=== PATIENT | male | born 1940 | race Caucasian/White ===

== ENCOUNTER 2024-05-24 13:00 | Outpatient (RCR) | payer MEDICARE, OTHER, SELFPAY ==
[2024-05-09 07:00] VITALS: BP 114/62; PULSE 68; O2SAT 98
== END 2024-05-28 14:10 | disposition home or self-care (01) ==
LOC: HO.PTWFD 13:00
PROVIDERS: PCP Internal Medicine; Visit Provider Nurse Practitioner
DX: Z98.890 Other specified postprocedural states (principal)
CPT/HCPCS: 97110; 97161

== ENCOUNTER 2024-08-05 09:24 | Outpatient (REF) | payer MEDICARE, OTHER, SELFPAY ==
--- OUTSIDE RECORDS SUMMARY | 2024-08-05 15:07 | XMS_ITS | Encounter Summary ---
Author Organization [facility] Address [address] [place] [address] Care Team Providers Care Window Maker Name Role Phone Lj Caldwell MD Primary Care Provider [phone] Reason for Visit * Reason Onset Date Comments medication 07/15/2024 Encounter Details Date Type Department Care Team (Late st Contact Info) Description 07/15/2024 Telephone [facility] [address] [place] [phone] Chriss Arrington MD [address] [place] [address] [address] [place] [address] medication Social History Tobacco Use Types Packs/Day [...] for him. Please call him back at [phone]. documented in this encounter Plan of Treatment Not on file documented as of this encounter Visit Diagnoses Not on filedocumented in this encounter Care Teams Window Maker Relationship Specialty Start Date End Date Lj Caldwell MD [address] [place] [address] [address] [place], [place] PCP - General Internal Medicine 09/19/21 documented as of this encounter
--- OUTSIDE RECORDS SUMMARY | 2024-08-05 15:07 | XMS_ITS | Clinical Summary ---
Author Organization [facility] Address [address] [place] [address] Care Team Providers Care Gleason Operator Name Role Phone Unavailable Primary Care Provider [...]
--- OUTSIDE RECORDS SUMMARY | 2024-08-05 15:07 | XMS_ITS | Clinical Summary ---
Author Organization [facility] Address [address] [place] [address] Phone Care Team Providers Care Sound Tester Name Role Phone Lj Caldwell MD Primary Care Provider [phone] Encounters Date Type Department Care Team Description 07/15/2024 Telephone [facility] Cardiology [address] [place] [phone] Chriss Arrington MD medication from Last 3 Months Surgical History Surgery Date Site/Laterality Comments OTHER SURGICAL HISTORY PROCEDURE: DC LAPS SURG [id number] RPBIC RAD W/NRV SPARING ROBOT TOTAL KNEE ARTHROPLASTY Bilateral PROCEDURE: HISTORICAL TOTAL KNEE REPLACE CHOLECYSTECTOMY PROCEDURE: HISTORICAL CHOLECYSTECTOMY TONSILLECTOMY 1944 PROCEDURE: HISTORICAL TONSILLECTOMY OTHER SURGICAL HISTORY PROCEDURE: HISTORY OTHER; COMMENT: Insertion of artifical genitourinary sphincter CATARACT EXTRACTION PROCEDURE: HISTORICAL CATARACT REMOVAL OTHER SURGICAL HISTORY PROCEDURE: DC CYSTO W/RESECJ ECTOPIC URETEROCELE UNI/BI APPENDECTOMY PROCEDURE: [...] [facility] 08/[facility] Urolithiasis DX:Urolithiasis; COMMENT: D[facility] 08/21/21 Transaminitis DX:Transaminitis ; COMMENT: D/C'd [place] [facility] 08/21/21 BPH (benign prostatic hyperplasia) DX:BPH (benign [...] age to complete this topic Care Teams Sound Tester Relationship Specialty Start Date End Date Lj Caldwell MD [address] [place] [address] [address] [place], [place] PCP - General Internal Medicine 09/19/21
[2024-08-05 15:23] LABS: MANUAL DIFF FLAG NO
[2024-08-05 15:42] LABS: Basophils Percent Auto 0.4 % (0-2); Eosinophils Absolute Auto 0.1 X10*3/uL (0.0-0.4); Eosinophils Percent Auto 1.5 % (0-4); Hematocrit 44.2 % (42.0-52.0); Imm Gran Abs Auto 0.02 X10*3/uL (0.00-0.03); Imm Gran Pct Auto 0.4 % (0.0-0.4); Lymphocytes Absolute Auto 2.1 X10*3/uL (1.2-4.9); Mean Corpuscular HGB Conc 33.9 g/dl (31.0-36.0); Mean Corpuscular Hemoglobin 33.2 pg (27.0-33.0); Mean Corpuscular Volume 97.8 fL (80.0-98.0); Mean Platelet Volume 10.8 fL (9.4-12.4); Monocytes Absolute Auto 0.7 X10*3/uL (0.1-1.2); Monocytes Percent Auto 12.9 % (2-11); Neutrophils Absolute Auto 2.4 x10*3/uL (2.0-8.3); Neutrophils Percent Auto 45.8 % (45-73); Platelet Count 169 X10*3/uL (160-400); Red Blood Count 4.52 X10*6/uL (4.60-5.80); Red Cell Distribution Width 12.3 % (11.0-16.0); White Blood Count 5.3 X10*3/uL (4.8-10.8)
[2024-08-05 16:12] LABS: Alanine Aminotransferase 26 U/L (0-40); Albumin Level 3.9 g/dL (3.5-5.0); Anion Gap 12 (12-20); Aspartate Amino Transferase 28 U/L (5-37); Bilirubin Total 0.5 mg/dL (0.0-1.0); Blood Urea Nitrogen 29 mg/dL (9-16); C Reactive Protein < 0.10 mg/dL (< or = 0.50); Calcium 9.4 mg/dL (8.4-10.2); Carbon Dioxide 25 mmol/L (22-29); Chloride 107 mmol/L (96-108); Estimated Glomerular Filt Rate > 60; Glucose Random 95 mg/dL (60-115); Potassium 4.2 mmol/L (3.3-5.1); Sodium 140 mmol/L (135-145); Total Protein 7.2 g/dL (6.5-8.0)
[2024-08-05 16:18] LABS: Alkaline Phosphatase 49 U/L (39-117)
[2024-08-05 16:29] LABS: Ferritin 83 ng/mL (20-250); TSH reflex Free T4 1.66 uIU/mL (0.32-4.0)
[2024-08-09 22:32] LABS: Transglutaminase Ab IgG <1.0 U/mL; Transglutaminase IgA <1.0 U/mL
== END 2024-08-05 09:25 | disposition home or self-care (01) ==
LOC: HO.LAB 09:24
PROVIDERS: PCP Internal Medicine; Visit Provider Internal Medicine Gastroenterology
DX: K75.81 Nonalcoholic steatohepatitis (NASH) (principal); R19.8 Other specified symptoms and signs involving the digestive system and abdomen; Z80.0 Family history of malignant neoplasm of digestive organs; R10.33 Periumbilical pain; G89.29 Other chronic pain
CPT/HCPCS: 36415; 80053; 82728; 84443; 85025; 86140; 86364; 99202

== ENCOUNTER 2024-08-05 09:24 | Outpatient (AMB) | payer MEDICARE, OTHER, SELFPAY ==
--- NOTE | 2024-08-05 09:27 | A.OFFVIS_ITS ---
Vital Signs 08/05/24 09:36 Height 5 ft 8 in Weight 151 lb BMI 23.0 BP 113/73 Blood Pressure Location Lt brachial Position Sitting Pulse 77 Intake Visit Reasons: Abnormal weight loss, Hx of Pancreaitis cancer Intake Note: Wicho presents in the office as a new patient for abnormal weight loss and hx of pancreatic cancer. CC: HE states that he is losing weight and also having very long BM he states they are 14 inches long. BM is hard and long. Allergies No Known Allergies Allergy (Verified 08/05/24 09:37) HPI HPI Abnormal weight loss, Hx of Pancreaitis cancer: Details: HPI 83 yr old m here for assessment for abn bowel habits He has noted longer stools, more volume, no blood he is going one-two times a day no diarrhea the stool is large and not easily flushed he had colonoscopy 1-2 yrs ago and had x2 polyps removed at [facility] by Johnny denies nausea or vomiting appetite is v good ROS: Constitutional : No Weight loss, No Fever, No Chills ENT/Mouth : No sore throat, No Rhinorrhea Eyes: No Swelling, No Redness Cardiovascular : No Chest Pain, No SOB, No Edema Respiratory : No Cough, No Sputum, No Wheezing Gastrointestinal : see HPI Genitourinary : NO Dysuria, No Urinary Frequency, No Hematuria, No Urgency Musculoskeletal : no joint pain, No Myalgias, No Joint Swelling Skin : No Skin Lesions, No rash Neuro : No Weakness, No Numbness, No Dizziness, No Headache Psych : No Anxiety/Panic, No Depression Heme/Lymph: No Bruising, No Lymphadenopathy Endocrine : No Polyuria, No Polydipsia All other systems reviewed and are negative. Medical History prostate cancer a-fib alzheimers HLP Surgical History prostatectomy when he was young man Family History pancreatic cancer in mother and brother daughter has celiac disease Social History no alcohol, non smoker, no drugs EXAM: GENERAL: The patient is well developed and nontoxic. VITAL SIGNS:see workflow HEENT: Nonicteric sclerae, PERRLA, EOMI. Oropharynx clear. Moist mucous membranes. Conjunctivae appear well perfused. No thyroid mass. CHEST: Chest wall is nontender. HEART: Regular rate and rhythm without murmurs. LUNGS: Clear to auscultation bilaterally. ABDOMEN: Soft, positive bowel sounds, nontender, no organomegaly.no flank tenderness SKIN: No rash, no excessive bruising, petechiae, or purpura. NEUROLOGIC: Cranial nerves II-XII intact without motor/sensory deficit. Psych: normal affect A/P: 1/ Abn bowel habits, previous hx of prostate ca, and pos FH of pancreatic ca--could be from meds also PLAN: 1/labs as below icnl TSH 2/ CT A/P wt contrast 3/ colonoscopy with suprep, hold epiquis for 2 d before [facility] Surgical History (Updated 08/05/24 @ 09:37 by SUNG Mukherjee) Hx of colonoscopy Physical Exam Vital Signs: Last Vital Signs Pulse 77 08/05/24 09:36 BP 113/73 08/05/24 09:36 BMI result Body Mass Index 23.0 Assessment & Plan Assessment & Plan (1) Abnormal bowel habits: Code(s): R19.8 - Other specified symptoms and signs involving the digestive system and abdomen Category: Medical Plan: as above (2) FH: pancreatic cancer: Code(s): Z80.0 - Family history of malignant neoplasm of digestive organs Category: Medical Plan: as above Orders: Orders Comprehensive Met. Panel Today K75.81 - Nonalcoholic steatohepatitis (BRITO), R19.8 - Other specified symptoms and signs involving the digestive system and abdomen, Z80.0 - Family history of malignant neoplasm of digestive organs Complete Blood Count Auto Diff Today R19.8 - Other specified symptoms and signs involving the digestive system and abdomen, Z80.0 - Family history of malignant neoplasm of digestive organs C Reactive Protein Today R19.8 - Other specified symptoms and signs involving the digestive system and abdomen, Z80.0 - Family history of malignant neoplasm of digestive organs Ferritin Today R19.8 - Other specified symptoms and signs involving the digest mariely system and abdomen, Z80.0 - Family history of malignant neoplasm of digestive organs TSH reflex Free T4 Today R19.8 - Other specified symptoms and signs involving the digestive system and abdomen, Z80.0 - Family history of malignant neoplasm of digestive organs Transglutaminase IgA Today R19.8 - Other specified symptoms and signs involving the digestive system and abdomen, Z80.0 - Family history of malignant neoplasm of digestive organs Transglutaminase Ab IgG Today G89.29 - Other chronic pain, R10.33 - Perium bilical pain, R19.8 - Other specified symptoms and signs involving the digestive system and abdomen, Z80.0 - Family history of malignant neoplasm of digestive organs Pancreatic Elastase-1 Today R19.8 - Other specified symptoms and signs involving the digestive system and abdomen, Z80.0 - Family history of malignant neoplasm of digestive organs CT abdomen pelvis w IV con Today R19.8 - Other specified symptoms and signs involving the digestive system and abdomen, Z80.0 - Family history of malignant neoplasm of digestive organs Medications: New barium sulfate 2%(w/v) (Readi-Cat 2) 900 mL PO ONCE 900 mL 0RF sodium,potassium,mag sulfates 17.5-3.13-1.6 gram (Suprep Bowel Prep Kit) DILUTE; drink 1/2 at 6-8 pm and half at 11 PM- 1AM 354 mL 0RF Coding Level of Care Code New Pt Level 4 (41039) Diagnoses Abnormal bowel habits R19.8 FH: pancreatic cancer Z80.0
[2024-08-05 09:36] VITALS: BP 113/73; PULSE 77; BMI 23.0
--- OUTSIDE RECORDS SUMMARY | 2024-08-05 09:48 | XMS_ITS | Data Portability ---
Author Organization [place] - [facility], Allergy Address [address] [place] [address] Care Team Providers Care Education Program Specialist Name Role Phone MACRINA MCINTYRE Primary Care Provider Assessment Encounter Date Assessment Date Assessment LastModified by Organization Details LastModified Time 07/05/2024 07/05/2024 Cerumen impaction, bilateral Resolved s/p cerumen removal. Normal otomicroscopic ear exam. PLAN: - Follow-up in 1 year - Advised to abstain from qtip use [email or web address] Not available 07/05/2024 11:34:49 Plan of Treatment Reminders Order Date Submit Date Provider Last Modified By Organization Details Last Modified Time Details Appointments None record ed. Lab None record ed. Referral None record ed. Procedures None record ed. Surgeries None record ed. Imaging None record ed. Medication Orders None record ed. Patient TargetsNo targets recorded. Patient InstructionsNo instructions recorded. Reason for Referral None Reported. Problems Name Problem SNOMED Code Status Onset Date Resolution Date Notes Provider Name and Address Organization Details Recorded Time Sensorine ural hearing loss of bilateral ears [id number] Active 2020 Sensorine ural hearing loss, bilateral ; Note: Date Diagnosed : 07/06/2020 11:18 AM (H90.3) Not Available [facility] 4 03:07:43 Impacted cerumen of bilateral ears [id number] 67644 Active 2020 Impacted cerumen, bilateral ; Note: Date Diagnosed : 07/06/2020 11:17 AM (H61.23) Not Available [facility] 4 03:07:42 Problem Notes None recorded. Procedures Surgical History Date Name Laterality Status Provider Name and Address Organization Details Recorded Time 07/05/19 25 Cerumen removal with microscope bilateral completed BRYANT MCCLAIN MD [address] [place] [address], [place], [address], [facility] - [facility] 07/05/2024 11:34:33 Tonsillectomy completed Yasmine Lebron [facility] 07/05/2024 11:15:22 Appendectomy completed Yasmine Lebron [facility] 07/05/2024 11:15:28 cholecystectomy completed Yasmine Lebron [facility] 07/05/2024 11:15:35 Cataract Surgery completed Yasmine Lebron [facility] 07/05/2024 11:16:10 Imaging Results None recorded. Procedure Notes None recorded. Medical Equipment None Reported. Allergies No known drug allergies Medications Name Sig Start Date Stop Date Status Note LastModified by Organization Details LastModified Time cyclobenz aprine 10 mg tablet TAKE 1 TABLET THREE TIMES DAILY NEEDED FOR BACK PAIN/ MUSCLE SPASM active Not Available Not Available No t Available donepezil 5 mg tablet active Not Available Not Available Not Available tizanidin e 2 mg tablet TAKE 1 TABLET BY MOUTH THREE TIMES A DAY NEEDED 07/05 completed Not Available Not Available Not Available tramadol 50 mg tablet TAKE 1 TABLET BY MOUTH TWICE A DAY active Not Available Not Available No t Available meloxicam 7.5 mg tablet 07/05 completed Medicati on ID: [id number] rand Name: meloxica m Send Method: E-Prescr ibed Sub s Allowed: subs OK Medic ationGen ericName : meloxica m Not Available Not Available Not Available hydrocort isone 2.5 % topical cream APPLY TO AFFECTED AREAS TWICE DAILY UNTIL RESOLVED . active Not Available Not Available No t Available ketoconaz ole 2 % topical cream APPLY THIN LAYER TO GROIN ONCE DAILY OR NEEDED. active Not Available Not Available No t Available rosuvasta tin 10 mg tablet TAKE 1 TABLET BY MOUTH EVERY DAY active Not Available Not Available No t Available DILT-XR 120 mg capsule, extended release TAKE 1 CAPSULE BY MOUTH DAILY FOR 180 DAYS. active Not Available Not Available No t Available Myrbetriq 50 mg tablet,ex tended release 2020 active Medicati on ID: [id number] B rand Name: Myrbetri q Send Method: E-Prescr ibed Sub s Allowed: subs OK Medic ationGen ericName : Perlabetri q Not Available Not Available Not Available Eliquis 5 mg tablet TAKE 1 TABLET BY MOUTH TWICE A DAY active Not Available Not Available No t Available Gemtesa 75 mg tablet active Not Available Not Available Not Available Vitals None Recorded Social History None recorded. Functional Status None recorded. Mental Status None recorded. Family History Nothing Reported. Medical History Condition Response Hypertension Y High Cholesterol Y Past Encounters Encounter ID Performer Location Encounter Start Date Encounter Closed Date Diagnosis/Indication Diagnosis SNOMED-CT Code Diagnosis ICD10 Code Diagnosis Note [id number] BRYANT MCCLAIN MD [facility] [address] [address] 07/05/2024 10:54:13 07/05/2024 11:30:48 Impacted cerumen of bilateral ears [id number] H61.23 Health Concerns Section Related Observation LastModified by Organization Detai ls LastModified Time None Recorded Concern Status LastModified by Organization Details LastModified Time None Recorded Advance Directives Directive None Recorded Payers Encounter Date Sequence Insurance Name Policy Number Policy Cantu Covered Member ID Cantu Member ID Guarantor Name 07/05/2024 1 [place] [employer] Wicho Vergara [id number] Wicho Vergara 07/05/2024 2 [facility] INDEMNITY PLAN - [facility] [id number] Barbara Patrice Vergara [id number] Wicho Vergara Notes Date Note Type Note Provider Name and Address Organization Details Recorded Time 07/05/2024 text/html History of cerumen impaction: yes Hearings loss: yes Qtip use: no Tinnitus: noVertigo: no Pain: no Drainage: no History of ear infections: no History of ear surgeries: no BRYANT MCCLAIN MD [address] [place] [address], [phone], [facility] - [facility] 07/05/2024 11:35:14
--- OUTSIDE RECORDS SUMMARY | 2024-08-05 09:49 | XMS_ITS | Clinical Summary ---
Author Organization [facility] Address [address] [place] [address] Phone Care Team Providers Care Nozzle Tender Name Role Phone Lj Caldwell MD Primary Care Provider [phone] Encounters Date Type Department Care Team Description 07/15/2024 Telephone [facility] Cardiology [address] [place] [phone] Chriss Arrington MD medication from Last 3 Months Surgical History Surgery Date Site/Laterality Comments OTHER SURGICAL HISTORY PROCEDURE: HI LAPS SURG [id number] RPBIC RAD W/NRV SPARING ROBOT TOTAL KNEE ARTHROPLASTY Bilateral PROCEDURE: HISTORICAL TOTAL KNEE REPLACE CHOLECYSTECTOMY PROCEDURE: HISTORICAL CHOLECYSTECTOMY TONSILLECTOMY 1944 PROCEDURE: HISTORICAL TONSILLECTOMY OTHER SURGICAL HISTORY PROCEDURE: HISTORY OTHER; COMMENT: Insertion of artifical genitourinary sphincter CATARACT EXTRACTION PROCEDURE: HISTORICAL CATARACT REMOVAL OTHER SURGICAL HISTORY PROCEDURE: HI CYSTO W/RESECJ ECTOPIC URETEROCELE UNI/BI APPENDECTOMY PROCEDURE: HISTORICAL APPENDECTOMY Medical History Medical History Date Comments Leucopenia DX:Leucopenia Chronic low back pain DX:Chronic low back pain Prostate cancer (CMS/HCC) DX:Pro state cancer (HCC) History of kidney stones DX:Hist ory of kidney stones Hydroureteronephrosis DX:Hydrour eteronephrosis; COMMENT: D/C'd from [facility] 08/21/21 Renal colic on right side DX:John al colic on right side; COMMENT: D/C'd from [facility] 08/21/21 UTI (urinary tract infection), bacterial DX:UTI (urinary tract infection), bacterial; COMMENT: D/C'd from [facility] 08/21/21 Urolithiasis DX:Urolithiasis; COMMENT: D/C'd from [facility] 08/21/21 Transaminitis DX:Transaminitis ; COMMENT: D/C'd from [facility] 08/21/21 BPH (benign prostatic hyperplasia) DX:BPH (benign prostatic hyperplasia) GERD (gastroesophageal reflux disease) DX:GERD (gastroesophageal reflux disease) Varicose veins of both lower extremities DX: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 DX :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 (CMS/HCC) DX:Adenocarcinoma of prostate (HCC) Lumbar herniated disc DX:Lumbar herniated disc Stress incontinence DX:Stress in continence History of varicose veins DX:His tory of varicose veins Elevation of levels of liver transaminase levels DX:Elevation of levels of li chapo transaminase levels Urinary calculus DX:Urinary calc ulus Unspecified hydronephrosis DX:Un specified hydronephrosis Tinea cruris DX:Tinea cruris Idiopathic osteoarthritis DX:Idi opathic osteoarthritis Anogenital candidiasis DX:Anogen ital candidiasis Amnesia DX:Amnesia IFG (impaired fasting glucose) D X:IFG (impaired fasting glucose) Family History Medical History Relation Name Comments Heart attack Father Other cancer Mother Relation Name Status Comments Father @ 7 6y/o Mother Social History Tobacco Use Types Packs/Day Years Used Date Smoking Tobacco: Never Smokeless Tobacco: Never Alcohol Use Standard Drinks/Week Comments Not Currently 0 (1 standard drink = 0.6 oz pur e alcohol) Sex and Gender Information Value Date Recorded Sex Assigned at Not on file Legal Sex Male 2:12 AM EST Gender Identity Not on file Sexual Orientation Not on file Obstetrics History Last Filed Vital Signs Vital Sign Reading Time Taken Comments Blood Pressure 118/70 02/03/2024 9:19 AM EDT Sit ting L Arm Pulse 70 02/03/2024 9:19 AM EDT Temperature - - Respiratory Rate - - Oxygen Saturation - - Inhaled Oxygen Concentration - - Weight 69.9 kg (154 lb) 02/03/2024 9:19 AM EDT Height 175.3 cm (5' 9 ) 02/03/2024 9:19 AM EDT Body Mass Index 22.74 02/03/2024 9:19 AM EDT Plan of Treatment Health Maintenance Due Date Last Done Comments COVID-19 Vaccine (#1) 1945 DTaP,Tdap,and Td Vaccines (1 - Tdap) 10/08/1959 Pneumococcal Vaccine: 50+ Ye ars (1 of 1 - PCV) 1990 Zoster Vaccines (1 of 2) 1990 RSV Immunization Patients 60 + Years Old (1 - 1-dose 75+ series) 10/08/2015 Cholesterol Screening (Lipid Panel) 06/01/2022 Depression Screening 06/01/2022 Falls Risk Assessment 06/01/2022 Social Influencers of Health Screening 06/01/2022 Influenza Vaccine (#1) 2024 Hypertension/CHF/CAD Annual BMP Blood Test 03/31/2024 HIB Vaccines Aged Out No longer eligi ble based on patient's age to complete this topic HPV Vaccines Aged Out No longer eligi ble based on patient's age to complete this topic Hepatitis A Vaccines Aged Out No long er eligible based on patient's age to complete this topic Hepatitis B Vaccines Aged Out No long er eligible based on patient's age to complete this topic IPV Vaccines Aged Out No longer eligi ble based on patient's age to complete this topic MMR Vaccines Aged Out No longer eligi ble based on patient's age to complete this topic Meningococcal ACWY Vaccine Aged Out N o longer eligible based on patient's age to complete this topic Meningococcal B Vacine Aged Out No lo nger eligible based on patient's age to complete this topic RSV Immunization Patients Un zulema 20 months Aged Out No longer eligible b ased on patient's age to complete this topic Varicella Vaccines Aged Out No longer eligible based on patient's age to complete this topic Care Teams Nozzle Tender Relationship Specialty Start Date End Date Lj Caldwell MD [address] [place] [address] [address] [place], [place] PCP - General Internal Medicine 09/19/21
--- OUTSIDE RECORDS SUMMARY | 2024-08-05 09:49 | XMS_ITS | Clinical Summary ---
Author Organization [facility] Address [address] [place] [address] Care Team Providers Care Judicial Clerk Name Role Phone Unavailable Primary Care Provider Unavailabl e Social History Tobacco Use Types Packs/Day Years Used Date Smoking Tobacco: Never Assessed Sex and Gender Information Value Date Recorded Sex Assigned at Not on file Gender Identity Not on file Sexual Orientation Not on file Job Start Date Occupation Industry Not on file Not on file Not on file Plan of Treatment Not on file
--- OUTSIDE RECORDS SUMMARY | 2024-08-05 09:49 | XMS_ITS | Encounter Summary ---
Author Organization [facility] Address [address] [place] [address] Care Team Providers Care Retail Tire Sales Manager Name Role Phone Lj Caldwell MD Primary Care Provider [phone] Reason for Visit * Reason Onset Date Comments medication 07/15/2024 Encounter Details Date Type Department Care Team (Late st Contact Info) Description 07/15/2024 Telephone [facility] [address] [place] [phone] Chriss Arrington MD [address] [place] [address] [address] [place] [address] medication Social History Tobacco Use Types Packs/Day Years Used Date Smoking Tobacco: Never Smokeless Tobacco: Never Alcohol Use Standard Drinks/Week Comments Not Currently 0 (1 standard drink = 0.6 oz pur e alcohol) Sex and Gender Information Value Date Recorded Sex Assigned at Not on file Legal Sex Male 2:12 AM EST Gender Identity Not on file Sexual Orientation Not on file documented as of this encounter Progress Notes * Amy Paez MA - 07/15/2024 4:35 PM EST I called Barbara and advised as below, she is gateful * Alon Rodriguez NP - 07/15/2024 4:12 PM EST Unfortunately I do not have a good recommendation - she should call her insurance company and ask for a list * Amy Paez MA - 07/15/2024 2:51 PM EST She is asking also if you had recommendations of a neurologist * Alon Rodriguez NP - 07/15/2024 2:43 PM EST Its fine for him to take. One possible side effect is slow heart rates. If he becomes dizzy or lightheaded on it then he may have to stop it. I would say he can give it a try. * Jayne Shabazz - 07/15/2024 2:14 PM EST The patients Barbara ibarra. He was recently diagnosed with Alzheimer's and Dementia. He wasplaced on Donepezil and is asking if this is ok for him to take, They read inline that he shouldn'ttake it because of his a-fib. They would also like to know if you can recommend a neurologist for him. Please call him back at [phone]. documented in this encounter Plan of Treatment Not on file documented as of this encounter Visit Diagnoses Not on filedocumented in this encounter Care Teams Retail Tire Sales Manager Relationship Specialty Start Date End Date Lj Caldwell MD [address] [place] [address] [address] [place], [place] PCP - General Internal Medicine 09/19/21 documented as of this encounter
== END 2024-08-05 10:27 | disposition home or self-care (01) ==
PROVIDERS: PCP Internal Medicine; Visit Provider Internal Medicine Gastroenterology
DX: R19.8 Other specified symptoms and signs involving the digestive system and abdomen (principal); Z80.0 Family history of malignant neoplasm of digestive organs
CPT/HCPCS: 99204

== ENCOUNTER 2024-09-29 09:54 | Day surgery (SDC) | payer MEDICARE, OTHER, SELFPAY ==
--- OUTSIDE RECORDS SUMMARY | 2024-09-21 07:36 | XMS_ITS | Clinical Summary ---
Author Organization [facility] Address [address] [place] [address] Phone Care Team Providers Care Drafter Commercial Name Role Phone Lj Caldwell MD Primary Care Provider [phone] Medications DILT-XR 120 mg 24 hr capsule TAKE 1 CAPSULE BY MOUTH DAILY FOR 180 DAYS. 90 capsule 3 09/09/2024 Active Encounters Date Type Department Care Team Description 07/15/2024 Telephone [facility] Cardiology [facility] [address] [place] [phone] Chriss Arrington MD medication from Last 3 Months Surgical History Surgery Date Site/Laterality Comments OTHER SURGICAL HISTORY PROCEDURE: [place] LAPS SURG [id number] RPBIC RAD W/NRV SPARING ROBOT TOTAL KNEE ARTHROPLASTY Bilateral PROCEDURE: HISTORICAL TOTAL KNEE REPLACE CHOLECYSTECTOMY PROCEDURE: HISTORICAL CHOLECYSTECTOMY TONSILLECTOMY 1944 PROCEDURE: HISTORICAL TONSILLECTOMY OTHER SURGICAL HISTORY PROCEDURE: HISTORY OTHER; COMMENT: Insertion of artifical genitourinary sphincter CATARACT EXTRACTION PROCEDURE: HISTORICAL CATARACT REMOVAL OTHER SURGICAL HISTORY PROCEDURE: [place] CYSTO W/RESECJ ECTOPIC URETEROCELE UNI/BI APPENDECTOMY PROCEDURE: HISTORICAL APPENDECTOMY Medical History Medical History Date Comments Leucopenia DX:Leucopenia Chronic low back pain DX:Chronic low back pain Prostate cancer (CMS/HCC) DX:Pro state cancer (HCC) History of kidney stones DX:Hist ory of kidney stones Hydroureteronephrosis DX:Hydrour eteronephrosis; COMMENT: D/C'd from [facility] 08/21/21 Renal colic on right side DX:John al colic on right side; COMMENT: D/[facility] [facility] [place]21 UTI (urinary tract infection), bacterial DX:UTI (urinary tract infection), bacterial; COMMENT: D/C[place] [facility] [place]21 Urolithiasis DX:Urolithiasis; COMMENT: [facility] Health Maintenance Due Date Last Done Comments DTaP,Tdap,and Td Vaccines (1 - Tdap) 10/08/1959 RSV Immunization Patients 60+ Years Old (1 - 1-dose 75+ series) 10/08/2015 COVID-19 Vaccine (3 - Pfizer risk series) 05/09/2021 04/11/2021, 08/19/2020 Cholesterol Screening (Lipid Panel) 06/01/2022 Depression Screening 06/01/2022 Falls Risk Assessment 06/01/2022 Social Influencers of Health Screening 06/01/2022 Influenza Vaccine (#1) 2024 , 03/27/2020, 04/06/2019, Additional history exists Hypertension/CHF/CAD Annual BMP Blood Test 03/31/2024 Zoster Vaccines Completed 02/01/2018, 11/06/2017 Pneumococcal Vaccine: 50+ Years Completed 05/05/2019, 11/06/2017 Hepatitis A Vaccines Aged Out 05/16/2019, 04/12/2019, 04/11/2019 No longer eligible based on patient's age to complete this topic HIB Vaccines Aged Out No longer eligi [...] to complete this topic RSV Immunization Patients Under 20 months Aged Out No longer eligible based on patient's age to complete this topic Varicella Vaccines Aged Out No longer eligible based on patient's age to complete this topic Care Teams Drafter Commercial Relationship Specialty Start Date End Date Lj Caldwell MD [address] [place] [address] [address] [place], [place] PCP - General Internal Medicine 09/19/21
--- OUTSIDE RECORDS SUMMARY | 2024-09-21 07:36 | XMS_ITS | Clinical Summary ---
Author Organization [facility] Address [address] [place] [address] Care Team Providers Care Fruit Grader Name Role Phone Unavailable Primary Care Provider [...]
[2024-09-27 13:19] VITALS: BMI 23.0
--- NOTE | 2024-09-28 12:24 | P.CONAN_ITS ---
Documented by User: Tameka Pang NP 09/28/24 12:31 HPI - Anesthesia Eval Consult details Narrative: 83yo M for Colonoscopy Eliquis for afib. Follows [facility] - requested last cardiac note 09/28/24 PMFSH Active Problems Active Problems: All Active Problems FH: pancreatic cancer (Acute) Abnormal bowel habits (Acute) Past Medical History Medical History Hyperlipidemia Back pain Alzheimer's dementia Afib Surgical History Surgical History Hx of prostatectomy Hx of colonoscopy Social History Social History Are you a primary certified social workers in health care to a significant other at home: No Do you presently have visiting nurse or other home services: No Patient Tobacco Use Status: Never used Tobacco Have you been hit, kicked, punched, or otherwise hurt by someone within the past year? If so, by whom?: No Are you DNR?: No Advance Directives: No Advance Directives Information Provided: Yes Poor oral hygiene: No Meds Allergies Allergy/AdvReac Type Severity Reaction Status Date / Time No Known Allergies Allergy Verified 09/29/24 10:25 Home Medications ?Medication ?Instructions ?Recorded ?Confirmed ?Last Taken ?Type acetaminophen 325 mg capsule 325 mg PO QID PRN Pain, Mild 08/05/24 09/29/24 Unknown History apixaban 5 mg tablet (Eliquis) 5 mg PO BID 08/05/24 09/29/24 09/26/24 History cholecalciferol (vitamin D3) 25 25 mcg PO DAILY 08/05/24 09/29/24 Unknown History mcg (1,000 unit) capsule diltiazem HCl 120 mg 120 mg PO BID 08/05/24 09/29/24 Unknown History capsule,extended release 12 hr donepezil 5 mg tablet 5 mg PO BEDTIME 08/05/24 09/29/24 Unknown History mecobalamin (vitamin B12) 500 mcg mcg PO 08/05/24 Unknown History chewable tablet uqwkwpme-jyv-xtshy 120 mcg-lutein tab PO 08/05/24 Unknown History 150 mcg-herb 50 mg chewable tablet (Alive Men's 50 Plus Multivitamin) rosuvastatin 10 mg tablet 10 mg PO DAILY 08/05/24 09/29/24 Unknown History Exam Height,Weight and Vital Signs: Height 5 ft 8 in Weight 68.492 kg Documented by User: Kera Gregorio MD 09/29/24 11:07 [facility] Past Medical History Medical History Hyperlipidemia Back pain Alzheimer's dementia Afib Family History Family history of problems with anesthesia: No Surgical History Surgical History Hx of prostatectomy Hx of colonoscopy History of Problems with Anesthesia: No Social History Social History Are you a primary certified social workers in health care to a significant other at home: No Do you presently have visiting nurse or other home services: No Patient Tobacco Use Status: Never used Tobacco Have you been hit, kicked, punched, or otherwise hurt by someone within the past year? If so, by whom?: No Are you DNR?: No Advance Directives: No Advance Directives Information Provided: Yes Poor oral hygiene: No Meds Allergies Allergy/AdvReac Type Severity Reaction Status Date / Time No Known Allergies Allergy Verified 09/29/24 10:25 Home Medications ?Medication ?Instructions ?Recorded ?Confirmed ?Last Taken ?Type acetaminophen 325 mg capsule 325 mg PO QID PRN Pain, Mild 08/05/24 09/29/24 Unknown History apixaban 5 mg tablet (Eliquis) 5 mg PO BID 08/05/24 09/29/24 09/26/24 History cholecalciferol (vitamin D3) 25 25 mcg PO DAILY 08/05/24 09/29/24 Unknown History mcg (1,000 unit) capsule diltiazem HCl 120 mg 120 mg PO BID 08/05/24 09/29/24 Unknown History capsule,extended release 12 hr donepezil 5 mg tablet 5 mg PO BEDTIME 08/05/24 09/29/24 Unknown History mecobalamin (vitamin B12) 500 mcg mcg PO 08/05/24 Unknown History chewable tablet imfjlgsg-vwr-utjnn 120 mcg-lutein tab PO 08/05/24 Unknown History 150 mcg-herb 50 mg chewable tablet (Alive Men's 50 Plus Multivitamin) rosuvastatin 10 mg tablet 10 mg PO DAILY 08/05/24 09/29/24 Unknown History Exam Airway Mallampati Class: II TM Dist: >3cm Neck ROM: Full Assessment and Plan Assessment Anesthesia Assessment: Anesthesia Plan Discussed and Chart Reviewed Final Anesthetic Review Family History of Problems with Anesthesia: No History of Problems with Anesthesia: No NPO: Yes ASA Class: III Final Preanesthetic Review: No Changes in Pt Med Stat, Meds/Allgs Chart Reviewed, Consent Obtained/Reviewed and Anes Risks/Benef Reviewed Patient Risk: Intermediate Procedure Risk: Low Anesthetic Plan Anesthetic Plan: TIVA Disposition: Standard PACU
[2024-09-29] MEDS: Lactated Ringers 1,000 ML 80 ML IVCONT (10:32)
[2024-09-29 10:43] VITALS: BP 127/89; PULSE 73; RESP 18; TEMP 36.7; O2SAT 98; BMI 22.9
--- NOTE | 2024-09-29 10:55 | P.HPSUR_ITS ---
Pre-Procedural Eval Section A - 24 Hr Update-Section A only Date of Service: 09/29/24 Section B - Complete if H&P > 30 days Chief Complaint: hx malignant neoplasm of digestive,s/sx digestive Relevant Family History (Specify if Yes): No Relevant Social History: None Present Medications: see Short Stay Collaborative assessment Medical History: Significant History (Hyperlipidemia Back pain Alzheimer's dem entia Afib) History of Previous Operations: Relevant previous surgery/procedure and date(s) (Hx of prostatectomy Hx of colonoscopy) Allergies: Allergies Allergy/AdvReac Type Severity Reaction Status Date / Time No Known Allergies Allergy Verified 09/29/24 10:25 Review of Systems Sugical H&P ROS: Negative: Constitution, Cardiovascular, Respiratory, Neurological, Psychiatric, Hem-Onc, Allergic/Immunologic, Gastrointestinal, Genitourinary, Musculoskeletal, Integumentary, Endocrine and Eyes/Ears/Nose/Throat Exam Surgical H&P Exam: Normal: HEENT, Normal: Heart, Normal: Lungs, Normal: Extremities, Normal: Abdomen, Normal: Skin and Normal: Neurological Plan Diagnosis/Plan: Unchanged I have reviewed the history and physical and performed a pertinent physical examination on my patient. No changes have occurred unless specified. Time Spent With Patient Time: Total time managing care of this patient today ____ minutes.
--- NOTE | 2024-09-29 11:59 | P.OPN-COLO_ITS ---
Colonoscopy Operative Note Operative Note Date of Service: 09/29/24 Narrative: Operative Information Procedure Description: Colonoscopy Indication: abn bowel habits Anesthesia: MAC COLONOSCOPY Instrument: Olympus variable stiffness pediatric scope 190L Colonoscopy Monitoring: Vital signs and clinical assessment, continuous EKG monitoring, Pulse oximetry, Carbon Dioxide monitoring and blood pressure monitoring were done throughout the procedure. Colon withdrawal time was 12 minutes. Procedure: The patient was placed in the left lateral decubitis position and pre-procedure medications were administered. After a digital rectal examination of the ano-rectum, the video colonoscope was inserted into the rectum and advanced through the colon to the cecum/TI. The colonoscope was slowly withdrawn in a retrograde panoramic fashion and the colon mucosa was carefully examined including a retroflexed view of the rectum. Findings and interventions are described below. Procedure Difficulty: easy Findings: Terminal Ileum-normal, bx taken Cecum:normal Ascending Colon: moderate severe diverticulosis, 4-5 mm sessile polyp removed with cold forceps Transverse Colon -normal Descending Colon: moderate severe diverticulosis Sigmoid Colon: moderate severe diverticulosis, x1 sessile polyp 8-9 mm removed with cold snare Rectum: Retroflexion with small internal hemorrhoids seen, grade I, 10 mm sessile polyp removed with cold snare, x1 clip applied for hemostasis Anorectum - normal Intervention: cold snare, cold forceps Colon preparation: [place] Bowel Preparation Scale Right colon; 2 Transverse colon: 2 Left colon; 2 (0 = Unprepared colon segment with mucosa not seen due to solid stool that cannot be cleared. 1 = Portion of mucosa of the colon segment seen, but other areas of the colon segment not well seen due to staining, residual stool and/or opaque liquid. 2 = Minor amount of residual staining, small fragments of stool and/or opaque liquid, but mucosa of colon segment seen well. 3 = Entire mucosa of colon segment seen well with no residual staining, small fragments of stool or opaque liquid) Impression and Post Procedure Diagnosis: diverticulosis colon polyps internal hemorrhoids Plan: High fiber diet leaflet Avoid straining at stool, epsom salts and sitz bath, anusol supps or cream Repeat Colonoscopy in 3-4 years if health allows or earlier if clinically indicated Above findings were reviewed with the patient and relevant handouts were provided if indicated.
[2024-09-29 12:01] VITALS: BP 99/65; PULSE 90; RESP 12; TEMP 36.2; O2SAT 97
[2024-09-29 12:20] VITALS: BP 107/73; PULSE 76; RESP 18; TEMP 36.1; O2SAT 98
== END 2024-09-29 12:52 | disposition home or self-care (01) ==
PROVIDERS: PCP Internal Medicine; Visit Provider Internal Medicine Gastroenterology
PROC: 0DJD8ZZ Inspection of Lower Intestinal Tract, Via Natural or Artificial Opening Endoscopic (ICD-10-PCS; CPT 45378; principal; 2024-09-29 13:10)
DX: R19.4 Change in bowel habit (principal); Z80.0 Family history of malignant neoplasm of digestive organs; D12.2 Benign neoplasm of ascending colon; D12.8 Benign neoplasm of rectum; K57.30 Diverticulosis of large intestine without perforation or abscess without bleeding; K64.0 First degree hemorrhoids; E78.5 Hyperlipidemia, unspecified; M54.9 Dorsalgia, unspecified; K75.81 Nonalcoholic steatohepatitis (NASH); G30.9 Alzheimer's disease, unspecified; F02.80 Dementia in other diseases classified elsewhere, unspecified severity, without behavioral disturbance, psychotic disturbance, mood disturbance, and anxiety; I48.91 Unspecified atrial fibrillation; Z79.01 Long term (current) use of anticoagulants; Z79.899 Other long term (current) drug therapy; Z98.890 Other specified postprocedural states
CPT/HCPCS: 45385; 45380; 88305; J2003; J2704

== ENCOUNTER → 2024-09-29 09:54 | Outpatient (BNV) | payer MEDICARE, OTHER, SELFPAY | PROVIDERS: PCP Internal Medicine; Visit Provider Internal Medicine Gastroenterology | DX: R19.4 Change in bowel habit (principal); Z85.07 Personal history of malignant neoplasm of pancreas; K57.90 Diverticulosis of intestine, part unspecified, without perforation or abscess without bleeding; K63.5 Polyp of colon; D12.8 Benign neoplasm of rectum; K64.0 First degree hemorrhoids | CPT/HCPCS: 45380; 45385 ==

== ENCOUNTER 2024-10-03 07:29 | Outpatient (REF) | payer MEDICARE, OTHER, SELFPAY ==
--- NOTE | ~2024-10-03 | CT_ITS ---
CLINICAL HISTORY: R19.8 - Other specified symptoms and signs involving the digestive syste... CT abdomen and pelvis with contrast Comparison: None Findings: No consolidation at the lung bases. No cardiomegaly. Severe calcified coronary artery disease. Mild calcification of the aortic valve. Status post cholecystectomy and prostatectomy. Mild wall thickening of the bladder. Small bladder diverticula. Pancreatic parenchymal calcifications. Ductal dilatation, parenchymal atrophy or focal decreased attenuation. No hydronephrosis. Left renal parapelvic cysts. Bilateral renal subcentimeter low attenuating lesions which are too small to characterize. Mild right renal scarring. Status post penile prosthesis. The other solid organs are unremarkable. No bowel wall thickening or dilation. The appendix is not visualized. No secondary signs of acute appendicitis. Colonic diverticulosis. No aneurysm. Moderate to severe calcified atherosclerotic disease. No lymphadenopathy. No ascites. No acute osseous abnormality. Status post kyphoplasty of T12. Grade 1 anterolisthesis of L4 on L5 and L5 on S1, degenerative. Impression: No definitive evidence of pancreatic cancer. If there is continued clinical concern for pancreatic cancer evaluate further with pancreatic mass protocol CT or MR. There are pancreatic parenchymal calcifications which can be the sequela of chronic pancreatitis. Wall thickening of the bladder with small diverticula is likely due to chronic outlet obstruction. Cystitis is considered less likely. Correlate with urinalysis. This document has been electronically signed by: Andie Chen MD on 10/03/2024 21:35:20
--- OUTSIDE RECORDS SUMMARY | 2024-10-03 07:33 | XMS_ITS | Data Portability ---
Author Organization [place] [facility] Address [address] [place] [phone] Care Team Providers Care Cnc Maintenance Technician Name Role Phone MACRINA MCINTYRE Primary Care Provider [phone] Assessment Encounter Date Assessment Date Assessment LastModified [...] Sensorine ural hearing loss of bilateral ears [id number] Active 2020 Sensorine ural hearing loss, bilateral ; Note: Date Diagnosed : 07/06/2020 11:18 AM (H90.3) Not Available [facility] 4 03:07:43 Impacted cerumen of bilateral ears [id number] Active 2020 Impacted cerumen, bilateral ; Note: Date Diagnosed : 07/06/2020 11:17 AM (H61.23) Not Available [facility] 4 03:07:42 Problem Notes None recorded. Procedures Surgical History Date Name Laterality Status Provider Name and Address Organization Details Recorded Time 07/05/19 25 Cerumen removal with microscope bilateral completed BRYANT MCCLAIN MD [address] [place] [address], [place], [phone], [facility] - [facility] 07/05/2024 11:34:33 Tonsillectomy completed Yasmine Lebron [facility] 07/05/2024 11:15:22 Appendectomy completed Yasmine Lebron [facility] 07/05/2024 11:15:28 cholecystectomy completed Yasmine Lebron [facility] 07/05/2024 11:15:35 Cataract Surgery completed Yasmine Lebron [facility] 07/05/2024 11:16:10 Imaging Results None recorded. Procedure [...] mg tablet 07/05 completed Medicati on ID: [id number] B rand Name: meloxica m Send Method: [...] tended release 2020 active Medicati on ID: [id number] B rand Name: Myrbetri q Send Method: [...] SNOMED-CT Code Diagnosis ICD10 Code Diagnosis Note [id number] BRYANT MCCLAIN MD [facility] [address] [address] 07/05/2024 10:54:13 07/05/2024 11:30:48 Impacted cerumen of bilateral ears [id number] H61.23 Health Concerns Section Related Observation LastModified by Organization Detai ls LastModified Time None Recorded Concern Status LastModified by Organization Details LastModified Time None Recorded Advance Directives Directive None Recorded Payers Encounter Date Sequence Insurance Name Policy Number Policy Cantu Covered Member ID Cantu Member ID Guarantor Name 07/05/2024 1 [place]ICARE [place]: [employer] Wicho Vergara [id number] Wicho Vergara 07/05/2024 2 [facility] INDEMNITY PLAN - COUNTS INCLUDE 234 [facility]EDS AT [facility] [id number] Barbara Patrice Vergara [id number] Wicho Vergara Notes Date Note Type Note Provider Name and Address Organization Details Recorded Time 07/05/2024 text/html History of cerumen impaction: yes Hearings loss: yes Qtip use: no Tinnitus: noVertigo: no Pain: no Drainage: no History of ear infections: no History of ear surgeries: no BRYANT MCCLAIN MD [address] [place] [address], [phone], [facility] - [facility] 07/05/2024 11:35:14
--- OUTSIDE RECORDS SUMMARY | 2024-10-03 07:33 | XMS_ITS | Clinical Summary ---
Author Organization [facility] Address [address] [place] [address] Phone Care Team Providers Care Junior Systems Engineer Name Role Phone Lj Caldwell MD Primary Care Provider [phone] Medications DILT-XR 120 mg 24 hr capsule TAKE 1 CAPSULE BY MOUTH DAILY FOR 180 DAYS. 90 capsule 3 09/09/2024 Active Encounters Date Type Department Care Team Description 07/15/2024 Telephone [facility] Cardiology [facility] [address] [place] [phone] Chriss Arrington MD medication from Last 3 Months Surgical History Surgery Date Site/Laterality Comments OTHER SURGICAL HISTORY PROCEDURE: [place] LAPS SURG [id number] RPBIC RAD W/NRV SPARING ROBOT TOTAL KNEE ARTHROPLASTY Bilateral PROCEDURE: HISTORICAL TOTAL KNEE REPLACE CHOLECYSTECTOMY PROCEDURE: HISTORICAL CHOLECYSTECTOMY TONSILLECTOMY 1944 PROCEDURE: HISTORICAL TONSILLECTOMY OTHER SURGICAL HISTORY PROCEDURE: HISTORY OTHER; COMMENT: Insertion of artifical genitourinary sphincter CATARACT EXTRACTION PROCEDURE: HISTORICAL CATARACT REMOVAL OTHER SURGICAL HISTORY PROCEDURE: [place] CYSTO W/RESECJ ECTOPIC URETEROCELE UNI/BI APPENDECTOMY PROCEDURE: HISTORICAL APPENDECTOMY Medical History Medical History Date Comments Leucopenia DX:Leucopenia Chronic low back pain DX:Chronic low back pain Prostate cancer (CMS/HCC V24, CMS/HCC V28) DX:Prostate cancer (HCC) History of kidney stones DX:Hist ory of kidney stones Hydroureteronephrosis DX:Hydrour eteronephrosis; COMMENT: D/C'd from [facility] 08/21/21 Renal colic on right side DX:John al colic on right side; COMMENT: D/C'd from [facility] 08/21/21 UTI (urinary tract infection), bacterial DX:UTI (urinary tract infection), bacterial; COMMENT: D/C'd from [facility] 08/21/21 Urolithiasis DX:Urolithiasis; COMMENT: D/C'd from [facility] 08/21/21 Transaminitis DX:Transaminitis ; COMMENT: D/C'd from 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 DX :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 ( CMS/HCC V24, CMS/HCC V28) DX:Adenocarcinoma of prostat e (HCC) Lumbar herniated disc DX:Lumbar herniated disc [...] Vaccines (1 - Tdap) 10/08/1959 RSV Immunization Adult Patients (1 - 1-dose 75+ series) 10/08/2015 COVID-19 Vaccine (3 - Pfizer risk series) 05/09/2021 04/11/2021, 08/19/2020 Cholesterol Screening (Lipid Panel) 06/01/2022 Depression Screening 06/01/2022 Falls Risk Assessment 06/01/2022 Social Influencers of Health Screening 06/01/2022 Hypertension/CHF/CAD Annual BMP Blood Test 03/31/2024 Influenza Vaccine (Season Ended) 2025 03/22/2021, 03/27/2020, 04/06/2019, Additional history exists Zoster Vaccines Completed 02/01/2018, 11/06/2017 Pneumococcal Vaccine: [...] age to complete this topic Meningococcal B Vaccine Aged Out No l onger eligible based on patient's age to complete this topic RSV Immunization Patients Under 20 months Aged Out No longer eligible based on patient's age to complete this topic Varicella Vaccines Aged Out No longer eligible based on patient's age to complete this topic Care Teams Junior Systems Engineer Relationship Specialty Start Date End Date Lj Caldwell MD [address] [place] [address] [address] [place], [place] PCP - General Internal Medicine 09/19/21
[2024-10-03] MEDS: Barium Sulfate Oral (Berry) 450 ML ORAL.SUSP 900 ML PO (09:34)
[2024-10-03] MEDS: iohexoL 350 MG/ML 100 ML INFUS..BTL IV (09:34)
[2024-10-03 09:43] LABS: Creatinine POC 0.7 mg/dL (0.5-1.4); GFR POC > 60
== END 2024-10-03 07:30 | disposition home or self-care (01) ==
LOC: HO.CT 07:29
PROVIDERS: PCP Internal Medicine; Visit Provider Internal Medicine Gastroenterology
DX: R19.8 Other specified symptoms and signs involving the digestive system and abdomen (principal); Z80.0 Family history of malignant neoplasm of digestive organs
CPT/HCPCS: 74177; 82565; Q9967

== ENCOUNTER → 2024-10-03 07:31 | Outpatient (BNV) | payer MEDICARE, OTHER, SELFPAY | PROVIDERS: PCP Internal Medicine; Visit Provider Radiology Diagnostic Radiology | DX: K86.1 Other chronic pancreatitis (principal); N32.0 Bladder-neck obstruction | CPT/HCPCS: 74177 ==

== ENCOUNTER 2024-12-05 10:19 | Outpatient (REF) | payer MEDICARE, OTHER, SELFPAY ==
[2024-12-05 11:50] LABS: Appearance Urine Clear; Color Urine Yellow; Glucose Urine UA Negative (Negative); Leukocyte Esterase Urine Negative (Negative); Nitrite Urine Negative (Negative); PH 5.5 (5.0-9.0); Urine Blood Negative (Negative); Urine Ketones Trace mg/dL (Negative); Urine Protein Negative (Neg-Trace)
== END 2024-12-05 10:20 | disposition home or self-care (01) ==
LOC: HO.LAB 10:19
PROVIDERS: PCP Internal Medicine; Visit Provider Internal Medicine Gastroenterology
DX: R30.0 Dysuria (principal); R32 Unspecified urinary incontinence; Z80.0 Family history of malignant neoplasm of digestive organs
CPT/HCPCS: 81003; 99212

== ENCOUNTER 2024-12-05 10:19 | Outpatient (AMB) | payer MEDICARE, OTHER, SELFPAY ==
--- NOTE | 2024-12-05 10:21 | A.OFFVIS_ITS ---
Vital Signs 12/05/24 10:22 Height 5 ft 8 in Weight 145 lb 8.081 oz BMI 22.1 BP 141/95 H Blood Pressure Location Lt brachial Position Sitting Pulse 78 Intake Visit Reasons: 4 month f/u Intake Note: Wicho presents in the office as a 4 month follow up. CC: He states that he is not having any concerns at this time. Chief Merchandising Officer Required: No Allergies No Known Allergies Allergy (Verified 12/05/24 10:24) HPI HPI 4 month f/u: Details: 84 yr old m here for f/u for abn bowel habits RECAP He had noted longer stools, more volume, no blood he was going one-two times a day no diarrhea the stool is large and not easily flushed he had colonoscopy 1-2 yrs ago and had x2 polyps removed at [facility] by Johnny pos FH of pancreatic ca-- I did colonoscopy 09/29/24 Colonoscopy 09/29/24 Impression and Post Procedure Diagnosis: diverticulosis colon polyps internal hemorrhoids Path: TA, nml random bx CT atherosclerotic disease panc calcifications, thickening of bladder INTERIM: he feels still losing weight inspite of eating well strains at stool denies nausea or vomiting appetite is v good no abdominal pain no diarrhea he has urine frequency and incontinence elastase is nml EXAM: GENERAL: The patient is well developed and nontoxic. VITAL SIGNS:see workflow HEENT: Nonicteric sclerae, PERRLA, EOMI. Oropharynx clear. Moist mucous membranes. Conjunctivae appear well perfused. No thyroid mass. CHEST: Chest wall is nontender. HEART: Regular rate and rhythm without murmurs. LUNGS: Clear to auscultation bilaterally. ABDOMEN: Soft, positive bowel sounds, nontender, no organomegaly.no flank tenderness SKIN: No rash, no excessive bruising, petechiae, or purpura. NEUROLOGIC: Cranial nerves II-XII intact without motor/sensory deficit. Psych: normal affect A/P: 1/ Abn bowel habits, previous hx of prostate ca, and could be from meds also 2/ urine incontinence, related to surgery, may also neuro component, abn imaging of bladder PLAN: 1/ UA 2/ urology referral for neuro stim 3/ MRI of pancreas 4/ csan try colace and miralax prn PFSH Medical History Hyperlipidemia Back pain Alzheimer's dementia Afib Surgical History Hx of prostatectomy Hx of colonoscopy Social History Are you a primary neurocritical care physician to a significant other at home: No Do you presently have visiting nurse or other home services: No Patient Tobacco Use Status: Never used Tobacco Physical Exam Vital Signs: Last Vital Signs Pulse 78 12/05/24 10:22 BP 141/95 H 12/05/24 10:22 BMI result Body Mass Index 22.1 Assessment & Plan Assessment & Plan (1) FH: pancreatic cancer: Code(s): Z80.0 - Family history of malignant neoplasm of digestive organs Category: Medical Plan: as above (2) Urine incontinence: Code(s): R32 - Unspecified urinary incontinence Category: Medical Plan: as above Orders: Orders UA CC w/rflx Micro + Cult Today R30.0 - Dysuria, Z80.0 - Family history of malignant neoplasm of digestive organs MR abdomen wo/w con Today Z80.0 - Family history of malignant neoplasm of digestive organs Referrals Urology Referral R32 - Unspecified urinary incontinence Coding Level of Care Code Est Pt Level 4 (17918) Diagnoses FH: pancreatic cancer Z80.0 Urine incontinence R32
[2024-12-05 10:22] VITALS: BP 141/95; PULSE 78; BMI 22.1
--- OUTSIDE RECORDS SUMMARY | 2024-12-05 11:29 | XMS_ITS | Data Portability ---
Author Organization [place] - [facility], All[facility] Address [address] [address] Care Team Providers Care Fleet Driver Name Role Phone RACHEL MCINTYREE Primary Care Provider Assessment Encounter Date Assessment [...] Sensorine ural hearing loss of bilateral ears [id number] Active 2020 Sensorine ural hearing loss, bilateral ; Note: Date Diagnosed : 07/06/2020 11:18 AM (H90.3) Not Available [facility] 4 03:07:43 Impacted cerumen of bilateral ears [id number] 74925 Active 2020 Impacted cerumen, bilateral ; Note: Date Diagnosed : 07/06/2020 11:17 AM (H61.23) Not Available [facility] 4 03:07:42 Problem Notes None recorded. Procedures Surgical History Date Name Laterality Status Provider Name and Address Organization Details Recorded Time 07/05/19 25 Cerumen removal with microscope bilateral completed BRYANT MCCLAIN MD [address] [place] [address], [phone], [facility] - [facility] 07/05/2024 11:34:33 Tonsillectomy completed Yasmine Lebron [facility] 07/05/2024 11:15:22 Appendectomy completed Yasmine Lebron [facility] 07/05/2024 11:15:28 cholecystectomy completed Yasmine Lebron [facility] 07/05/2024 11:15:35 Cataract Surgery completed Yasmine Lebron [facility] 07/05/2024 11:16:10 Imaging Results None recorded. Procedure [...] mg tablet 07/05 completed Medicati on ID: [id number] B rand Name: catherine london Send Method: E-Prescr ibed Sub s Allowed: [...] tended release 2020 active Medicati on ID: [id number] B rand Name: Myrbetri q Send Method: E-Prescr ibed Sub s Allowed: subs OK Medic ationGen ericName : Yulia ga Not Available Not Available Not Available Eliquis [...] SNOMED-CT Code Diagnosis ICD10 Code Diagnosis Note [id number] BRYANT MCCLAIN MD [facility] [address] [address] 07/05/2024 10:54:13 07/05/2024 11:30:48 Impacted cerumen of bilateral ears [id number] H61.23 Health Concerns Section Related Observation LastModified by Organization Detai ls LastModified Time None Recorded Concern Status LastModified by Organization Details LastModified Time None Recorded Advance Directives Directive None Recorded Payers Insurance Date Sequence Insurance Name Policy Number Policy Cantu Covered Member ID Cantu Member ID Guarantor Name 06/30/2024 1 [place] [employer] iWcho Vergara [id number] Wicho Vergara 07/11/2024 2 [employer] INDE[employer]ITY PLAN - [facility] [id number] Barbara Vergara [id number] Wicho Vergara Notes Date Note Type Note Provider Name and Address Organization Details Recorded Time 07/05/2024 text/html History of cerumen impaction: yes Hearings loss: yes Qtip use: no Tinnitus: noVertigo: no Pain: no Drainage: no History of ear infections: no History of ear surgeries: no BRYANT MCCLAIN MD [address] [place] [address], [phone], [facility] - [facility] 07/05/2024 11:35:14
== END 2024-12-05 10:54 | disposition home or self-care (01) ==
LOC: HO.HGI 10:19
PROVIDERS: PCP Internal Medicine; Visit Provider Internal Medicine Gastroenterology
DX: Z80.0 Family history of malignant neoplasm of digestive organs (principal); R32 Unspecified urinary incontinence
CPT/HCPCS: 99214

== ENCOUNTER → 2024-12-29 08:19 | Outpatient (BNV) | payer MEDICARE, OTHER, SELFPAY | PROVIDERS: PCP Internal Medicine; Visit Provider Radiology Diagnostic Radiology | DX: K86.2 Cyst of pancreas (principal) | CPT/HCPCS: 74183 ==

== ENCOUNTER 2024-12-29 08:40 | Outpatient (REF) | payer MEDICARE, OTHER, SELFPAY ==
--- NOTE | ~2024-12-29 | MR_ITS ---
EXAMINATION: MR ABDOMEN WITHOUT THEN WITH IV CONTRAST HISTORY: Z80.0 - Family history of malignant neoplasm of digestive organs COMPARISON: Correlation is made with a CT of the abdomen with contrast dated 10/03/2024. TECHNIQUE: Axial in and out of phase T1-weighted gradient echo, axial diffusion weighted, and axial and coronal HASTE T2 with fat saturation images were obtained through the abdomen. 3D MRCP Reconstructed and thin and thick slab images of the biliary tree were obtained. Subsequently, fat suppressed axial and coronal T1-weighted images were obtained after the intravenous administration of 6.5 mL Gadavist. FINDINGS: The examination is limited by patient motion, particularly on the postcontrast images. Liver: There is no loss of signal intensity in the liver on opposed phase imaging to suggest steatosis. There is no definite enhancing liver mass. The hepatic and portal veins are patent. There is no intrahepatic biliary dilatation. Gallbladder/biliary tree: The patient is status post cholecystectomy. The common bile duct is normal in caliber. No intraluminal filling defects are identified to suggest choledocholithiasis. Spleen: The spleen is unremarkable. Pancreas: The pancreas is grossly unremarkable. There is a tiny 2 mm cyst in the pancreatic body. No definite enhancing pancreatic mass is identified, although evaluation is limited by patient motion. The pancreatic duct is normal in caliber. Adrenals: The adrenal glands are unremarkable. Kidneys: There are parapelvic cysts on the left measuring up to 1.6 cm. There is no hydronephrosis. Lymph nodes: There is no retroperitoneal lymphadenopathy in the upper abdomen. Fluid: There is no ascites in the upper abdomen. Visualized bowel: The visualized bowels loops are unremarkable in appearance. Visualized bones: The patient is status post T12 kyphoplasty. There is grade I spondylolisthesis of L4 on L5. Additional findings: A penile implant reservoir is seen in the midline of the pelvis. MR/MR abdomen wo/w con IMPRESSION: Limited examination due to patient motion. 2 mm pancreatic cyst. No definite suspicious pancreatic mass is seen. Electronically signed by: Camilo Muniz MD 12/29/2024 09:56 AM EDT
--- OUTSIDE RECORDS SUMMARY | 2024-12-29 08:53 | XMS_ITS | Clinical Summary ---
Author Organization [facility] Address [address] [place] [address] Phone Care Team Providers Care Lime Filter Operator Name Role Phone Lj Caldwell MD Primary Care Provider [phone] Allergies No known active allergies Medications DILT-XR 120 mg 24 hr capsule TAKE 1 CAPSULE BY MOUTH DAILY FOR 180 DAYS. 90 capsule 3 09/09/2024 Active alendronate (FOSAMAX) 70 mg tablet Take 1 tablet (70 mg total) by mouth every 7 (seven) days. Take in the morning with a full glass of water, on an empty stomach, and do not take anything else by mouth or lie down for the next 30 min. Active apixaban (ELIQUIS) 5 mg tablet Take 1 tablet (5 mg total) by mouth 2 (two) times a day. Active acetaminophen (TYLENOL 8 HOUR) 650 mg 8 hr tablet Take 1 tablet (650 mg total) by mouth 1 (one) time each day. Do not crush, chew, or split. Active cyanocobalamin (Vitamin B-12) 500 mcg tablet Take 1 tablet (500 mcg total) by mouth 1 (one) time each day. Active cholecalciferol (Vitamin D3) 25 mcg (1,000 unit) tablet Take 1 tablet (1,000 Units total) by mouth 1 (one) time each day. Active donepeziL (ARICEPT) 5 mg tablet Take 1 tablet (5 mg total) by mouth at bedtime. Active vit A/vit C/vit E/zinc/copper (ICAPS AREDS ORAL) Take 1 capsule by mouth 2 (two) times a day. Active multivitamin tablet Take 1 tablet by mouth 1 (one) time each day. Active rosuvastatin (CRESTOR) 10 mg tablet Take 1 tablet (10 mg total) by mouth 1 (one) time each day. Active Active Problems No known active problems Encounters Date Type Department Care Team Description 12/07/[address] [facility] [address] [facility] [address] [place] [address] Angella Carrillo NP Results; returning call (Returning call ) 11/23/2024 10:40 AM EDT Office Visit [facility] [address] [facility] [address] [place] [address] Angella Carrillo NP Paroxysmal atrial fibrillation (CMS/HCC V24, CMS/HCC V28) (Primary Dx); Hyperlipidemia, unspecified hyperlipidemia type 11/23/2024 Telephone [facility] [address] [facility] [address] [place] [address] Angella Carrillo NP 11/23/2024 Telephone [facility] [address] [facility] [facility] [address] [place] [address] Angella Carrillo NP from Last 3 Months Surgical History Surgery Date Site/Laterality Comments OTHER SURGICAL HISTORY PROCEDURE: [place] LAPS SURG [id number] RPBIC RAD W/NRV SPARING ROBOT TOTAL KNEE ARTHROPLASTY Bilateral PROCEDURE: HISTORICAL TOTAL KNEE REPLACE CHOLECYSTECTOMY PROCEDURE: HISTORICAL CHOLECYSTECTOMY TONSILLECTOMY 1944 PROCEDURE: HISTORICAL TONSILLECTOMY OTHER SURGICAL HISTORY PROCEDURE: HISTORY OTHER; COMMENT: Insertion of artifical genitourinary sphincter CATARACT EXTRACTION PROCEDURE: HISTORICAL CATARACT REMOVAL OTHER SURGICAL HISTORY PROCEDURE: [place] CYSTO W/RESECJ ECTOPIC URETEROCELE UNI/BI APPENDECTOMY PROCEDURE: HISTORICAL APPENDECTOMY Medical History Medical History Date Comments Leucopenia DX:Leucopenia Chronic low back pain DX:Chronic low back pain Prostate cancer (CMS/HCC V24, CMS/HCC V28) DX:Prostate cancer (HCC) History of kidney stones DX:Hist ory of kidney stones Hydroureteronephrosis DX:Hydrour eteronephrosis; COMMENT: D/C'd from [facility] 08/21/21 Renal colic on right side DX:John al colic on right side; COMMENT: D/C'd from [facility] 08/21/21 UTI (urinary tract infection), bacterial DX:UTI (urinary tract infection), bacterial; COMMENT: D/C'd from [facility] 08/21/21 Urolithiasis DX:Urolithiasis; COMMENT: D/C'd from [facility] 08/21/21 Transaminitis DX:Transaminitis ; COMMENT: D/C'd from [facility] 08/21/21 BPH (benign prostatic hyperplasia) DX:BPH (benign [...] Sign Reading Time Taken Comments Blood Pressure 112/68 11/23/2024 10:53 AM EDT Pulse 76 11/23/2024 10:53 AM EDT Temperature - - Respiratory Rate - - Oxygen Saturation 96% 11/23/2024 10:53 AM EDT Inhaled Oxygen Concentration - - Weight 68 kg (150 lb) 11/23/2024 10:53 AM EDT Height 175.3 cm (5' 9 ) 11/23/2024 10:53 AM EDT Body Mass Index 22.15 11/23/2024 10:53 AM EDT Plan of Treatment Upcoming Encounters Date Type Department Care Team (Late st Contact Info) Description 01/18/2025 10:30 AM EDT Ancillary Procedure [facility] [address] [place] [address] 02/28/2025 3:35 PM EDT Consult [facility] [address] [place] [address] Nick Escobar MD [address] [place] [address] 05/26/2025 9:10 AM EST Office Visit [facility] [address] [place] [address] Angella Carrillo NP [address] [place] [address] [place] [address] Health Maintenance Due Date Last Done Comments DTaP,Tdap,and Td Vaccines (1 - Tdap) 10/08/1959 Depression Screening 06/01/2022 Falls Risk Assessment 06/01/2022 Medicare Annual Wellness Visit 06/01/2022 Social Influencers of Health Screening 06/01/2022 COVID-19 Vaccine (7 - Pfizer risk 2023- season) 2024 03/16/2024, 03/26/2023, 03/14/2022, Additional history exists Influenza Vaccine (#1) 2025 , 03/26/2023, 04/15/2022, Additional history exists Hypertension/CHF/CAD Annual BMP Blood Test 11/24/2025 11/24/2024 Cholesterol Screening (Lipid Panel) 12/15/2029 12/15/2024 Zoster Vaccines Completed 02/01/2018, 11/06/2017 Pneumococcal Vaccine: 50+ Years Completed 05/05/2019, 11/06/2017 Hepatitis A Vaccines Aged Out 05/16/2019, 04/12/2019, 04/11/2019 No longer eligible based on patient's age to complete this topic RSV Immunization Adult Patients Completed 05/08/2023 HIB Vaccines Aged Out No longer eligi [...] on patient's age to complete this topic Procedures Procedure Name Priority Date/Time Associated Diagnosis Comments LIPID PANEL Routine 12/15/2024 8:09 AM EDT Hyperlipidemia, unspecified hyperlipidemia type BASIC METABOLIC PANEL Routine 11/24/2024 9:37 AM EDT Paroxysmal atrial fibrillation (CMS/HCC V24, CMS/HCC V28) from Last 3 Months Results * Lipid panel (12/15/2024 8:09 AM EDT) Cholesterol Total 122 100 - 199 mg/dL [facility] Triglycerides 64 0 - 149 mg/dL [facility] HDL Cholesterol 52 >39 mg/dL [facility] VLDL Cholesterol Calculated 14 5 - 40 mg/dL [facility] LDL Chol Calc ([facility]) 56 0 - 99 mg/dL [facility] 1 Blood Venous blood specimen / Unknown 12/15/2024 8:09 AM EDT 12/15/2024 Narrative [facility] 1 - 12/16/2024 1:06 AM EDT Performed at: - [address] [id number] Muck Miner: Dona [place] MD, Phone: [phone] Specimen Comment: A courtesy copy of this report has been sent to [phone] us Angella Carrillo HANGAR ATTENDANT LAB BLOOD ORDERABLES Final Res ult Performing Organization Address City/[facility]/ZIP Co de Phone Number [facility] * (ABNORMAL) Basic metabolic panel (11/24/2024 9:37 AM EDT) Pathologist [facility] Glucose 138(H) 70 - 99 mg/dL [facility] 1 Blood Urea Nitrogen (BUN) 18 8 - 27 mg/dL [facility] 1 Creatinine 1.04 0.76 - 1.27 mg/dL [facility] 1 eGFR 71 >59 mL/min/1.7 3 [facility] 1 BUN/Creatinine Ratio 17 10 - 24 [facility] 1 Sodium 140 134 - 144 mmol/L [facility] 1 Potassium 4.8 3.5 - 5.2 mmol/L [facility] 1 Chloride 104 96 - 106 mmol/L [facility] 1 Carbon Dioxide 20 20 - 29 mmol/L [facility] 1 Calcium 9.3 8.6 - 10.2 mg/dL [facility] 1 Blood Venous blood specimen / Unknown 11/24/2024 9:37 AM EDT 11/24/2024 Narrative [facility] 1 - 11/25/2024 11:06 PM EDT Performed at: 01 - [facility] [id number] Muck Miner: Dona [place] MD, Phone: [phone] us Angella Carrillo NP LAB BLOOD ORDERABLES Final Res ult [facility] 1 from Last 3 Months Insurance MEDICARE [facility] Care Teams Lime Filter Operator Relationship Specialty Start Date End Date Lj Caldwell MD [address] [place] [address] [address] MARGARITA Martin PCP - General Internal Medicine 09/19/21
--- OUTSIDE RECORDS SUMMARY | 2024-12-29 08:53 | XMS_ITS | Clinical Summary ---
Author Organization [facility] Address [address] [place] [address] Care Team Providers Care Information Consultant Name Role Phone Unavailable Primary Care Provider [...]
--- OUTSIDE RECORDS SUMMARY | 2024-12-29 08:53 | XMS_ITS | Data Portability ---
Author Organization [place] - [facility], [facility] Address [address] [address] Care Team Providers Care Feed Elevator Worker Name Role Phone MACRINA MCINTYRE Primary Care [...] Sensorine ural hearing loss of bilateral ears [id number] Active 2020 Sensorine ural hearing loss, bilateral ; Note: Date Diagnosed : 07/06/2020 11:18 AM (H90.3) Not Available [facility] 4 03:07:43 Impacted cerumen of bilateral ears [id number] 50914 Active 2020 Impacted cerumen, bilateral ; Note: Date Diagnosed : 07/06/2020 11:17 AM (H61.23) Not Available [facility] 4 03:07:42 Problem Notes None recorded. Procedures Surgical History Date Name Laterality Status Provider Name and Address Organization Details Recorded Time 07/05/19 25 Cerumen removal with microscope bilateral completed BRYANT MCCLAIN MD [address] [place] [address], [place], [address], [facility] - [facility] 07/05/2024 11:34:33 Tonsillectomy completed Yasmine Lebron [facility] 07/05/2024 11:15:22 Appendectomy completed Yasmine Lebron [facility] 07/05/2024 11:15:28 cholecystectomy completed Yasmine Lebron [facility] 07/05/2024 11:15:35 Cataract Surgery completed Yasmine Lebron [facility] 07/05/2024 11:16:10 Imaging Results None recorded. [...] mg tablet 07/05 completed Medicati on ID: [id number] B rand Name: catherine london Send Method: E-Prescr ibed Sub s Allowed: subs OK Medic ationGen ericName : jva surya Not Available Not Available Not Available hydrocort [...] tended release 2020 active Medicati on ID: [id number] B rand Name: Yulia ga Send Method: E-Prescr ibed Sub s Allowed: [...] SNOMED-CT Code Diagnosis ICD10 Code Diagnosis Note [id number] BRYANT MCCLAIN MD [facility] [address] [address] 07/05/2024 10:54:13 07/05/2024 11:30:48 Impacted cerumen of bilateral ears [id number] H61.23 Health Concerns Section Related Observation LastModified by Organization Detai ls LastModified Time None Recorded Concern Status LastModified by Organization Details LastModified Time None Recorded Advance Directives Directive None Recorded Payers Insurance Date Sequence Insurance Name Policy Number Policy Cantu Covered Member ID Cantu Member ID Guarantor Name 06/30/2024 1 [place] [employer] Wicho Vergara [id number] Wicho Vergara 07/11/2024 2 [facility] INDNITY PLAN - [facility] [id number] Barbara Vergara [id number] Wicho Vergara Notes Date Note Type Note Provider Name and Address Organization Details Recorded Time 07/05/2024 text/html History of cerumen impaction: yes Hearings loss: yes Qtip use: no Tinnitus: noVertigo: no Pain: no Drainage: no History of ear infections: no History of ear surgeries: no BRYANT MCCLAIN MD [address] [place] [address], [phone], [facility] - [facility] 07/05/2024 11:35:14
== END 2024-12-29 08:41 | disposition home or self-care (01) ==
LOC: HO.MRI 08:40
PROVIDERS: PCP Internal Medicine; Visit Provider Internal Medicine Gastroenterology
DX: K86.2 Cyst of pancreas (principal); Z80.0 Family history of malignant neoplasm of digestive organs
CPT/HCPCS: 74183; A9585

== ENCOUNTER 2025-01-13 08:54 | Outpatient (AMB) | payer MEDICARE, OTHER, SELFPAY ==
--- NOTE | 2025-01-13 09:09 | MHC.OFFVIS ---
Intake Visit Reasons: urge incontinence/ hx prostate cancer Intake Note: patient presents today for initial visit for urge incontinence/hx prostate cancer Urology Medication:none Blood Thinner:apixaban Antibiotic Allergies:none Today's PVR:0ml's Linen Keeper Required: No Allergies No Known Allergies Allergy (Verified 01/13/25 09:12) HPI Comments Details: 01/13/2025--Wicho is an 84-year-old male with history of prostate cancer here as a new patient evaluation for complaints of urinary incontinence. Urinalysis is negative. History of Present Illness - The patient is an 84-year-old male presenting with urinary incontinence. - He has a history of prostate cancer treated with radical prostatectomy in 2010, leading to urinary incontinence. - Despite attempts with multiple anticholinergics, including Gemtesa and artificial urinary sphincter x 2, his incontinence persists. - Bladder wall thickening and diverticulae were noted on a recent CAT scan, indicating bladder muscle remodeling like contributing to bladder spasms. - The patient also has dementia and Alzheimer's disease, managed with Donepezil, which may contribute to urinary frequency symptoms. Discussion: The sacral nerves play a vital role in controlling the bladder and bowel muscles.?When these nerves are stimulated, it can help regulate their function, improving control and reducing symptoms.?I discussed that Sacral neuromodulation is a therapy the sends impulses to the sacral nerve that control bladder and bowel function. Results - CAT scan: 10/03/24--Bladder wall thickening and diverticulae observed. - Urinalysis: Negative. Plan - Evaluate the use of a bladder pacemaker with a test phase to determine its effectiveness in managing bladder spasms. - Consider Botox injections if the pacemaker does not provide relief, noting the risk of urinary retention. - Advise increased fluid intake to support kidney function despite urinary frequency. PFSH Medical History Hyperlipidemia Back pain Alzheimer's dementia Afib Surgical History Hx of prostatectomy Hx of colonoscopy Social History Are you a primary resident care manager to a significant other at home: No Do you presently have visiting nurse or other home services: No Patient Tobacco Use Status: Never used Tobacco Review of Systems Const All systems reviewed & are unremarkable except as noted in HPI and below Reports no additional complaints Eyes Reports no additional complaints ENT Reports no additional complaints Card Reports no additional complaints Resp Reports no additional complaints GI Reports no additional complaints Reports as per HPI Musc Reports no additional complaints Skin/Breast Reports system reviewed and no additional complaints, except as documented Neuro Reports no additional complaints Psych Reports no additional complaints Endo Reports no additional complaints Bandar/Lymph Reports no additional complaints Aller/Immun Reports no additional complaints Physical Exam Const General: healthy appearing, no acute distress and well developed Orientation/consciousness: patient oriented x3 HEENT Head: Yes normocephalic and Yes atraumatic Eyes Conjunctivae: conjunctivae normal Neck Neck: Yes normal visual inspection Chest Chest palpation & inspection: normal inspection of the chest Resp Effort & Inspection: normal respiratory effort Cardio Rate: regular rate GI Inspection: Yes normal to inspection Neuro General: patient oriented x3 Psych Appearance: grossly normal Affect: normal affect Office Procedures Post Void Residual Post Residual Void Post Void Residual (PVR): 0 [id number] Void Residual by ultrasound Results AMB Urinalysis, Automated UA Leukoctes 0 Mayra/uL Last Edit by Eloisa Black on 01/13/25 12:11 UA Nitrite Negative Last Edit by Eloisa Black on 01/13/25 12:11 UA Urobilinogen 0.2 mg/dL Last Edit by Eloisa Black on 01/13/25 12:11 UA Protein 0 mg/dL Last Edit by Eloisa Black on 01/13/25 12:11 UA pH 6.0 Last Edit by Eloisa Black on 01/13/25 12:11 UA Blood 0 Fred/uL Last Edit by Eloisa Black on 01/13/25 12:11 UA Specific Cos Cob 1.020 Last Edit by Eloisa Black on 01/13/25 12:11 UA Ketone Negative Last Edit by Eloisa Black on 01/13/25 12:11 UA Bilirubin 0 mg/dL Last Edit by Eloisa Black on 01/13/25 12:11 UA Glucose 0 mg/dL Last Edit by Eloisa Black on 01/13/25 12:11 Results Reviewed Results Reviewed: Laboratory Last Values Urine pH (Auto) 6.0 01/13/25 12:04 Specific Cos Cob (Auto) 1.020 01/13/25 12:04 Urine Protein (Auto) 0 mg/dL 01/13/25 12:04 Glucose (UA)(Auto) 0 mg/dL 01/13/25 12:04 Urine Ketones (Auto) Negative 01/13/25 12:04 Urine Blood (Auto) 0 Fred/uL 01/13/25 12:04 Urine Nitrite (Auto) Negative 01/13/25 12:04 Urine Bilirubin (Auto) 0 mg/dL 01/13/25 12:04 Urine Urobilinogen (Auto) 0.2 mg/dL 01/13/25 12:04 Leukocyte Esterase (Auto) 0 Mayra/uL 01/13/25 12:04 Date of Service: 10/03/24 CLINICAL HISTORY: R19.8 - Other specified symptoms and signs involving the digestive syste... CT abdomen and pelvis with contrast Comparison: None Findings: No consolidation at the lung bases. No cardiomegaly. Severe calcified coronary artery disease. Mild calcification of the aortic valve. Status post cholecystectomy and prostatectomy. Mild wall thickening of the bladder. Small bladder diverticula. Pancreatic parenchymal calcifications. Ductal dilatation, parenchymal atrophy or focal decreased attenuation. No hydronephrosis. Left renal parapelvic cysts. Bilateral renal subcentimeter low attenuating lesions which are too small to characterize. Mild right renal scarring. Status post penile prosthesis. The other solid organs are unremarkable. No bowel wall thickening or dilation. The appendix is not visualized. No secondary signs of acute appendicitis. Colonic diverticulosis. No aneurysm. Moderate to severe calcified atherosclerotic disease. No lymphadenopathy. No ascites. No acute osseous abnormality. Status post kyphoplasty of T12. Grade 1 anterolisthesis of L4 on L5 and L5 on S1, degenerative. Impression: No definitive evidence of pancreatic cancer. If there is continued clinical concern for pancreatic cancer evaluate further with pancreatic mass protocol CT or MR. There are pancreatic parenchymal calcifications which can be the sequela of chronic pancreatitis. Wall thickening of the bladder with small diverticula is likely due to chronic outlet obstruction. Cystitis is considered less likely. Correlate with urinalysis. 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 The patient expressed understanding and agreement with the above treatment plan. The patient is aware they should contact our office by phone for worsening of their current condition or the appearance of new symptoms. Compliance is encouraged with any medications and followup testing that is ordered. It is a privilege to be allowed the opportunity to participate in the urologic care of your patient. If you have any questions or concerns regarding treatment for the above conditions please do not hesitate to contact me. The office telephone contact is [phone]. This note is constructed in part using voice recognition software. While every effort has been made to ensure accuracy military personnel specialist errors may have been included. Yours sincerely, Darlene Ramos MD Scribe Plan - Not visible on output: Patient was informed and verbally consented to the use of an ambient scribe for clinic note documentation during this visit. Coding Level of Care Code New Pt Level 4 (74683) Diagnoses Urgency-frequency syndrome N32.81 Urine incontinence R32 Voiding dysfunction N39.8 CPT Codes Post Residual Void - PVR CPT Code: 90143-Dxac Void Residual by ultrasound ([id number])
--- OUTSIDE RECORDS SUMMARY | 2025-01-13 09:11 | XMS_ITS | Clinical Summary ---
Author Organization [facility] Address [address] [place] [address] Care Team Providers Care Advertising Display Rotator Name Role Phone Unavailable Primary Care Provider [...]
--- OUTSIDE RECORDS SUMMARY | 2025-01-13 09:11 | XMS_ITS | Data Portability ---
Author Organization MD - [facility], Allergy Address [address] [address] Care Team Providers Care Crate Tier Name Role Phone MACRINA MCINTYRE Primary Care [...] Sensorine ural hearing loss of bilateral ears [id number] Active 2020 Sensorine ural hearing loss, bilateral ; Note: Date Diagnosed : 07/06/2020 11:18 AM (H90.3) Not Available [facility] 4 03:07:43 Impacted cerumen of bilateral ears [id number] 13345 Active 2020 Impacted cerumen, bilateral ; Note: Date Diagnosed : 07/06/2020 11:17 AM (H61.23) Not Available [facility] 4 03:07:42 Problem Notes None recorded. Procedures Surgical History Date Name Laterality Status Provider Name and Address Organization Details Recorded Time 07/05/19 25 Cerumen removal with microscope bilateral completed BRYANT MCCLAIN MD [address] [place] [address], [place], [address], [facility] - [facility] 07/05/2024 11:34:33 Tonsillectomy completed Yasmine Lebron [facility] 07/05/2024 11:15:22 Appendectomy completed Yasmine Lebron [facility] 07/05/2024 11:15:28 cholecystectomy completed Yasmine Lebron [facility] 07/05/2024 11:15:35 Cataract Surgery completed Yasmine Lebron [facility] 07/05/2024 11:16:10 Imaging Results None [...] mg tablet 07/05 completed Medicati on ID: [id number] B rand Name: catherine london Send Method: [...] tended release 2020 active Medicati on ID: [id number] B rand Name: Yulia ga Send Method: [...] History Nothing Reported. Medical History Condition Response High Cholesterol Y Hypertension Y Past Encounters Encounter ID Performer Location Encounter Start Date Encounter Closed Date Diagnosis/Indication Diagnosis SNOMED-CT Code Diagnosis ICD10 Code Diagnosis Note [id number] BRYANT MCCLAIN MD [facility] [address] [address] 07/05/2024 10:54:13 07/05/2024 11:30:48 Impacted cerumen of bilateral ears [id number] H61.23 Health Concerns Section Related Observation LastModified by Organization Detai ls LastModified Time None Recorded Concern Status LastModified by Organization Details LastModified Time None Recorded Advance Directives Directive None Recorded Payers Insurance Date Sequence Insurance Name Policy Number Policy Cantu Covered Member ID Cantu Member ID Guarantor Name 06/30/2024 1 MEDICARE B-[place]: [facility] Wicho Vergara [id number] Wicho Vergara 07/11/2024 2 COUNTS INCLUDE 234 BEDS AT [facility] [id number] Barbara Vergara [id number] Wicho Vergara Notes Date Note Type Note Provider Name and Address Organization Details Recorded Time 07/05/2024 text/html ROS as noted in the HPI History of cerumen impaction: yes Hearings loss: yes Qtip use: no Tinnitus: noVertigo: no Pain: no Drainage: no History of ear infections: no History of ear surgeries: no BRYANT MCCLAIN MD [address] [place] [address], [phone], [facility] - [facility] 07/05/2024 11:35:14
== END 2025-01-13 10:08 | disposition home or self-care (01) ==
LOC: HO.HUSH 08:55
PROVIDERS: PCP Internal Medicine; Visit Provider Urology
DX: R32 Unspecified urinary incontinence (principal)
CPT/HCPCS: 99204

== ENCOUNTER → 2025-01-13 08:54 | Outpatient (BNVA) | payer MEDICARE, OTHER, SELFPAY | PROVIDERS: PCP Internal Medicine; Visit Provider Urology | DX: N36.42 Intrinsic sphincter deficiency (ISD) (principal); N39.3 Stress incontinence (female) (male); N32.81 Overactive bladder; N39.8 Other specified disorders of urinary system; Z85.46 Personal history of malignant neoplasm of prostate; Z90.79 Acquired absence of other genital organ(s); G30.9 Alzheimer's disease, unspecified; F02.80 Dementia in other diseases classified elsewhere, unspecified severity, without behavioral disturbance, psychotic disturbance, mood disturbance, and anxiety; Z79.899 Other long term (current) drug therapy | CPT/HCPCS: 51798; 81003; 99202 ==

== ENCOUNTER 2025-01-24 09:44 | Outpatient (REF) | payer MEDICARE, OTHER, SELFPAY ==
--- OUTSIDE RECORDS SUMMARY | 2025-01-24 10:09 | XMS_ITS | Clinical Summary ---
Author Organization [facility] Address [address] [place] [address] Care Team Providers Care Urban Redevelopment Specialist Name Role Phone Unavailable Primary Care Provider [...]
--- OUTSIDE RECORDS SUMMARY | 2025-01-24 10:09 | XMS_ITS | Encounter Summary ---
Author Organization [facility] Address [address] [place] [address] Care Team Providers Care Component Prep Operator Name Role Phone Lj Caldwell MD Primary Care Provider [phone] Reason for Visit * Reason Onset Date Comments echo results 01/23/2025 Encounter Details Date Type Department Care Team (Late st Contact Info) Description 01/23/2025 Telephone [facility] [address] [place] [address] [address] [place] [id number] Bri Cardoso MA echo results Social History Tobacco Use Types Packs/Day Years [...] as of this encounter Progress Notes * Bri Cardoso MA - 01/23/2025 9:58 AM EDT ----- Message from Zuleyka Carrillo NP sent at 01/21/2025 7:53 AM EDT ----- Please let Wicho his echo was reviewed- pumping function of his heart is within a normal range, mild regurgitation through the aortic valve, ascending aorta is mildly dilated. We will continue to monitor. Please have him reach out with concerns. Fol low up as scheduled with Dr. Escobar 03/14 documented in this encounter Plan of Treatment Upcoming Encounters Date Type Department Care Team (Late st Contact Info) Description 03/14/2025 2:10 PM EDT Consult [facility] [address] [place] [address] Nick Escobar MD [address] [place] [address] 05/26/2025 9:10 AM EST Office Visit [facility] [address] [place] [address] [address] [place] [address] Angella Carrillo NP [address] [place] [address] [place] [address] documented as of this encounter Visit Diagnoses Not on filedocumented in this encounter Care Teams Component Prep Operator Relationship Specialty Start Date End Date Lj Caldwell MD [address] [place], [place] PCP - General Internal Medicine 09/19/21 documented as of this encounter
--- NOTE | 2025-01-24 12:15 | W.PM.OPN ---
Operative Note Operative Note Date of Service: 01/24/25 Narrative: PreOperative Diagnosis: Urinary urgency and frequency Post Operative Diagnosis: Urinary urgency and frequency Procedure: 1.) Percutaneous implantation of neurostimulator electrode array including image guidance - performed bilateral - left and right foramen 2) Programming of lead x 2 Surgeon: Darlene Ramos Anesthesia: Local Indications for procedure: - Failed multiple (more than 2) anticholinergic medications in attempt to manage urinary urgency and frequency Procedure: After informed consent was verified the patient was brought to the interventional radiology suite. The patient was placed in a prone position and prepped and draped in a sterile fashion. Safety pause time-out was performed. Using the C-arm and Finder needle the S3 foramen exiting from the pelvic arch was marked horizontally from left to right as our horizontal marker. The left and right medial aspect of foramen were highlighted and aligned with the finder needle in a vertical fashion. Lines were marked. The intersection of these lines marked the entry point on the skin of the medial aspect of the left and right S3 foramen. Local anesthetic was infiltrated along the vertical aspect on both sides. The finder needle was inserted initially into the right targeted foramen. Imaging was performed in AP and lateral fashion. The needle was shown to into the S4 foramen. The needle was repositioned and entry into the right S3 foramen was confirmed. A 2nd needle was placed for entry into the left S3 foramen. The supervisor process testing was attached and assessed for placement with Leon response and toe movement bilaterally. Good responses were confirmed at low amperage (under 1A) bilateral. The right side had more discomfort so the needle was withdrawn proximally half a cm for better response. Starting with the right side. The internal introducer from the needle was removed and the supervisor process testing placed. The needle was removed and imaging used to confirmin good placement of supervisor process testing. This procedure was repeated on the left side. The two test leads were then attached to the test generator and appropriate dressing was applied in order to maintain integrity for the duration of the outpatient test sequence. CPT 22029, plus 97784-23 for second lead placement. Inclusive of image guidance, [address]2736 - simple programming
== END 2025-01-24 09:45 | disposition home or self-care (01) ==
LOC: HO.RADIR 09:44
PROVIDERS: PCP Internal Medicine; Visit Provider Urology
DX: R32 Unspecified urinary incontinence (principal)
CPT/HCPCS: 64561; C1787; C1897

== ENCOUNTER → 2025-01-24 09:44 | Outpatient (BNV) | payer MEDICARE, OTHER, SELFPAY | PROVIDERS: PCP Internal Medicine; Visit Provider Urology | DX: R35.0 Frequency of micturition (principal); R39.15 Urgency of urination | CPT/HCPCS: 64561 ==

== ENCOUNTER 2025-01-31 13:15 | Outpatient (AMB) | payer MEDICARE, OTHER, SELFPAY ==
--- NOTE | 2025-01-31 13:36 | MHC.OFFVIS ---
Intake Visit Reasons: Interstim non destructive testing engineer removal Intake Note: patient presents today for interstim non destructive testing engineer removal Urology Medication:none Blood Thinner:apixaban Antibiotic Allergies:none Human Intelligence Required: No Accompanied by: Self / Same As Patient Allergies No Known Allergies Allergy (Verified 03/14/25 09:33) HPI Comments Details: 02/13 Follow-up from phase 1 Kim Rice carrie Would like to move ahead with Part 2 01/13/2025--Wicho is an 84-year-old male with history of prostate cancer here as a new patient evaluation for complaints of urinary incontinence. Urinalysis is negative. History of Present Illness - The patient is an 84-year-old male presenting with urinary incontinence. - He has a history of prostate cancer treated with radical prostatectomy in 2010, leading to urinary incontinence. - Despite attempts with multiple anticholinergics, including Gemtesa and artificial urinary sphincter x 2, his incontinence persists. - Bladder wall thickening and diverticulae were noted on a recent CAT scan, indicating bladder muscle remodeling like contributing to bladder spasms. - The patient also has dementia and Alzheimer's disease, managed with Donepezil, which may contribute to urinary frequency symptoms. Discussion: The sacral nerves play a vital role in controlling the bladder and bowel muscles.?When these nerves are stimulated, it can help regulate their function, improving control and reducing symptoms.?I discussed that Sacral neuromodulation is a therapy the sends impulses to the sacral nerve that control bladder and bowel function. Results - CAT scan: 10/03/24--Bladder wall thickening and diverticulae observed. - Urinalysis: Negative. Plan - Evaluate the use of a bladder pacemaker with a test phase to determine its effectiveness in managing bladder spasms. - Consider Botox injections if the pacemaker does not provide relief, noting the risk of urinary retention. - Advise increased fluid intake to support kidney function despite urinary frequency. PFSH Medical History (Updated 03/14/25 @ 09:20 by Aida Lara RN) Osteoporosis Prostate cancer Hyperlipidemia Back pain Alzheimer's dementia Afib Surgical History (Updated 03/14/25 @ 09:32 by Aida Lara RN) History of partial knee replacement Hx of cataract extraction Hx of appendectomy Hx of tonsillectomy Status post implantation of artificial urinary sphincter Hx of prostatectomy Hx of colonoscopy Social History Are you a primary medical care evaluation specialist to a significant other at home: No Do you presently have visiting nurse or other home services: No Patient Tobacco Use Status: Never used Tobacco Use of substances other than those prescribed or required for medical reasons: No Are you DNR?: No Advance Directives: No Advance Directives Information Provided: Yes Review of Systems Const Denies chills and Denies fever(s) Card Reports no additional complaints and Denies syncope Resp Denies cough GI Denies abdominal pain and Denies heartburn Reports as per HPI and Denies change in libido Neuro Denies syncope Psych Denies change in libido Endo Denies change in libido Physical Exam Const General: cooperative, healthy appearing, comfortable and no acute distress Orientation/consciousness: patient oriented x3 HEENT Face and sinus: Yes normal facial exam Mouth: moist mucous membranes Neck Neck: Yes normal visual inspection, Yes full ROM and Yes trachea midline Chest Chest palpation & inspection: normal inspection of the chest Resp Effort & Inspection: normal respiratory effort, able to speak in complete sentences and no respiratory distress GI Inspection: Yes normal to inspection Back/Spine/Pelvis Cervical Spine: normal cervical lordosis Thoracic/Lumbar Spine: thoracic and lumbar spine normal to inspection Skin General skin exam: no rashes or lesions noted Neuro General: patient oriented x3, gait normal, tone normal and moves all extremities Extrem General: Yes normal to inspection and Yes capillary refill normal Assessment & Plan Assessment & Plan (1) Urgency-frequency syndrome: Code(s): N32.81 - Overactive bladder Category: Medical Plan InterStim Part 2 Patient Instructions: This note is constructed using voice recognition software. While every effort has been made to ensure accuracy school guard errors may have been included. Imaging studies, laboratory and physical exam results were discussed and reviewed in detail. No major barriers to patient understanding were identified. An opportunity to ask questions regarding the treatment plan was provided. All questions were answered. The patient expressed understanding and agreement with the above treatment plan. The patient is aware they should contact our office by phone for worsening of their current condition or the appearance of new urologic symptoms. Compliance is encouraged with any medications and followup testing that is ordered. It is a privilege to participate in the urologic care of your patient. If you have any questions or concerns regarding treatment for the above conditions, or other urologic issues, please do not hesitate to contact me. The office telephone contact is [phone]. Sincerely, Dr Jun Barbosa MD, [facility] - Urology Compassionate Specialist Care for the Genitourinary System Coding Level of Care Code Est Pt Level 3 (94110) Diagnoses Urgency-frequency syndrome N32.81
--- OUTSIDE RECORDS SUMMARY | 2025-01-31 14:04 | XMS_ITS | Clinical Summary ---
Author Organization [facility] Address [address] [place] [address] Care Team Providers Care Asp Net C Developer Name Role Phone Unavailable Primary Care Provider [...]
--- OUTSIDE RECORDS SUMMARY | 2025-01-31 14:04 | XMS_ITS | Clinical Summary ---
Author Organization [facility] Address [address] [place] [address] Phone Care Team Providers Care Employment Adjudicator Name Role Phone Lj Caldwell MD Primary Care Provider [phone] Allergies No known active allergies Medications DILT-XR [...] Encounters Date Type Department Care Team Description 01/23/2025 [address] [facility] [address] [facility] [address] [place] [address] Bri Cardoso MA echo results 01/23/2025 Telephone [facility] [address] [facility] [address] [place] [address] Bri Cardoso MA echo results 01/18/2025 10:30 AM EDT Ancillary Procedure [facility] [address] [place] [address] Paroxysmal atrial fibrillation (CMS/HCC V24, CMS/HCC V28); Aortic dilatation (CMS/HCC V24) 12/07/[address] [facility] [address] [facility] [address] [place] [address] Angella Carrillo NP Results; returning call (Returning call ) 11/23/2024 10:40 AM EDT Office Visit [facility] [address] [place] [address] Angella Carrillo NP Paroxysmal atrial fibrillation (CMS/HCC V24, CMS/HCC V28) (Primary Dx); Hyperlipidemia, unspecified hyperlipidemia type 11/23/2024 [address] [facility] [address] [facility] [address] [place] [address] Angella Carrillo NP 11/23/2024 [address] [facility] [address] [facility] [address] [place] [address] Angella Carrillo NP from Last 3 Months Surgical History Surgery Date Site/Laterality Comments OTHER SURGICAL HISTORY PROCEDURE: CO LAPS SURG [id number] RPBIC RAD W/NRV SPARING ROBOT TOTAL KNEE ARTHROPLASTY Bilateral PROCEDURE: HISTORICAL TOTAL KNEE REPLACE CHOLECYSTECTOMY PROCEDURE: HISTORICAL CHOLECYSTECTOMY TONSILLECTOMY 1944 PROCEDURE: HISTORICAL TONSILLECTOMY OTHER SURGICAL HISTORY PROCEDURE: HISTORY OTHER; COMMENT: Insertion of artifical genitourinary sphincter CATARACT EXTRACTION PROCEDURE: HISTORICAL CATARACT REMOVAL OTHER SURGICAL HISTORY PROCEDURE: CO CYSTO W/RESECJ ECTOPIC URETEROCELE UNI/BI APPENDECTOMY PROCEDURE: HISTORICAL APPENDECTOMY Medical History Medical History Date Comments Leucopenia DX:Leucopenia Chronic low back pain DX:Chronic low back pain Prostate cancer ([facility] V24, [facility] V28) DX:Prostate cancer ([facility]) History of kidney stones DX:Hist ory of kidney stones Hydroureteronephrosis DX:Hydrour eteronephrosis; COMMENT: [place] [facility] Renal colic on right side DX:John al colic on right side; COMMENT: D/C'd [place] [facility]/21 UTI (urinary tract infection), bacterial DX:UTI (urinary tract infection), bacterial; COMMENT: D/C'd from [facility] 08/21/21 Urolithiasis DX:Urolithiasis; COMMENT: D/C'd from [facility] [place]/21 Transaminitis DX:Transaminitis ; COMMENT: D/C'd [place] [facility] [place]/21 BPH (benign prostatic hyperplasia) DX:BPH (benign prostatic hyperplasia) GERD (gastroesophageal reflux disease) DX:GERD (gastroesophageal reflux disease) Varicose veins of both lower extremities DX: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 DX :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 ( [facility] V24, [facility] V28) DX:Adenocarcinoma of prostat e ([facility]) Lumbar herniated disc DX:Lumbar herniated disc Stress [...] Sign Reading Time Taken Comments Blood Pressure 119/80 01/18/2025 3:43 PM EDT Pulse 76 11/23/2024 10:53 AM EDT Temperature - - Respiratory Rate - - Oxygen Saturation 96% 11/23/2024 10:53 AM EDT Inhaled Oxygen Concentration - - Weight 68.9 kg (152 lb) 01/18/2025 3:43 PM EDT Height 175.3 cm (5' 9 ) 01/18/2025 3:43 PM EDT Body Mass Index 22.45 01/18/2025 3:43 PM EDT Plan of Treatment Upcoming Encounters Date Type Department Care Team (Late st Contact Info) Description 03/14/2025 2:10 PM EDT Consult [facility] [address] [place] [address] Nick Escobar MD [address] [place] [address] 05/26/2025 9:10 AM EST Office Visit [facility] [address] [place] [address] Angella Carrillo NP [address] [place] [address] [place] [address] Health Maintenance Due Date Last Done Comments DTaP,Tdap,and Td Vaccines (1 - Tdap) 10/08/1959 Falls Risk Assessment 06/01/2022 Medicare Annual Wellness Visit 06/01/2022 Social Influencers of Health Screening 06/01/2022 Depression Screening 06/22/2024 COVID-19 Vaccine (7 - Pfizer risk season) 2024 03/16/2024, 03/26/2023, 03/14/2022, Additional history [...] Procedure Name Priority Date/Time Associated Diagnosis Comments TRANSTHORACIC ECHOCARDIOGRAM (TTE) COMPLETE Routine 01/18/2025 11:10 AM EDT Paroxysmal atrial fibrillation (CMS/HCC V24, CMS/HCC V28) Aortic dilatation (CMS/HCC V24) LIPID PANEL Routine 12/15/2024 8:09 AM EDT Hyperlipidemia, unspecified hyperlipidemia type BASIC METABOLIC PANEL Routine 11/24/2024 9:37 AM EDT Paroxysmal atrial fibrillation (CMS/HCC V24, CMS/HCC V28) from Last 3 Months Results * (ABNORMAL) TRANSTHORACIC ECHOCARDIOGRAM (TTE) COMPLETE (01/18/2025 11:10 AM EDT) Left Atrium Minor [place] 6.1 cm CV PACS Left Atrium Major [place] 6.3 cm CV PACS LA Area Sys (A2C) 24 cm2 CV PACS LA Area Sys (A4C) 26 cm2 CV PACS LA Volume (BP) 85 mL CV PACS LA Size 4.6 cm CV PACS RA Area 21.8 cm2 CV PACS RA 2D Volume 70 mL CV PACS AV Regurgitation PHT 715 ms CV PACS AR Max Velocity 3.7 m/s CV PACS AV Peak Gradient 56 mmHg CV PACS AV Peak Basim 1.1 m/s CV PACS AV Peak Gradient 5 mmHg CV PACS AV Mean Gradient 3 mmHg CV PACS AV Mean Gradient 3 mmHg CV PACS Ao VTI 22.2 cm CV PACS AV Area Continuity Equation 2.7 cm2 CV PACS AV Area Peak Velocity 2.9 cm2 CV PACS Aortic Sinus Valsalva 3.5 cm CV PACS Ascending Aorta 3.9 cm CV PACS IVC Proximal 2.1 cm CV PACS IVSD 1.1(A) 0.6 - 1.0 cm CV PACS LVIDD 4.7 4.2 - 5.8 cm CV PACS LVIDS 3.3 2.5 - 4.0 cm CV PACS LVOT Diameter 2.1 cm CV PACS LVOT Mean Basim 0.5 m/s CV PACS LVOT Mean Grad 1 mmHg CV PACS LVOT Mean Grad 1 mmHg CV PACS LVOT Peak VTI 17.3 cm CV PACS LVOT Peak Basim 1.0 m/s CV PACS LVOT Peak Gradient 4 mmHg CV PACS LVPWD 1.2(A) 0.6 - 1.0 cm CV PACS MV E' Tissue Velocity Lateral 17 cm/s CV PACS MV E' Tissue Velocity Septal 8 cm/s CV PACS LVOT Area 3.5 cm2 CV PACS LVOT Stroke Volume 60 mL CV PACS MV Deceleration [place] 6.8 m/s2 CV PACS E Wave Deceleration Time 191 119 - 242 ms CV PACS MV PHT 56 ms CV PACS MV Peak E Basim 1.33 m/s CV PACS MV Mean Gradient 3 mmHg CV PACS MV VTI 19.9 cm CV PACS Mitral Valve Max Velocity 1.3 m/s CV PACS MV Peak Gradient 7 mmHg CV PACS MV Area PHT 3.9 cm2 CV PACS MV Area Continuity Equation 3.0 cm2 CV PACS PV Acceleration Time 106 ms CV PACS PV Acceleration Time 95 ms CV PACS PV Acceleration Time 101 ms CV PACS PV Mean Gradient 1 mmHg CV PACS PV VTI 16.1 cm CV PACS PV Peak Velocity 0.8 m/s CV PACS PV Peak Gradient 2 mmHg CV PACS RV Diastolic Basal Dimension 4.4(A) 2.5 - 4.1 cm CV PACS RV S' 10 cm/s CV PACS TAPSE 24 mm CV PACS TR Peak Velocity 2.63 m/s CV PACS TR Peak Gradient 28 mmHg CV PACS E/E' Ratio Septal 17 CV PACS E/E' Ratio Averaged 12 CV PACS Relative Wall Thickness ratio 0.51 CV PACS LVOT:AV VTI Index 0.78 CV PACS FS 30 % CV PACS LV Mass 2D 200 g CV PACS MV VTI:LVOT VTI ratio 1.2 CV PACS LVOT flow 173 mL/s CV PACS AV Velocity Ratio 0.91 CV PACS E/E' Ratio Lateral 8 CV PACS BSA 1.83 m2 CV PACS LA Volume Index (BP) 46 mL/m2 CV PACS LVIDD Index 2.55 cm/m2 CV PACS LVIDS Index 1.79 cm/m2 CV PACS LV Mass Index 2D 108(A) 50 - 102 g/m2 CV PACS LVOT Stroke Index 33 mL/m2 CV PACS LA Dimension Index 2D 2.5 cm/m2 CV PACS RA 2D Volume Index 38(A) 18 - 32 mL/m2 CV PACS LIN Index (VTI) 1.47 cm2/m2 CV PACS LIN Index (Pk Basim) 1.58 cm2/m2 CV PACS Ascending Aorta Index 2.12 cm/m2 CV PACS Right Ventricular Peak Systolic Pressure 36 mmHg CV PACS Est. RA Pressure 8 mmHg CV PACS Anatomical Region Laterality Modality Ultrasound Narrative 01/18/2025 4:12 PM EDT Left Ventricle: Left ventricle cavity size is normal. There is mild concentric hypertrophy. Systolic function is normal with an ejection fraction of 55-60%. There are no regional LV wall motion abnormalities. Indeterminate diastolic function due to atrial fibrillation. Left Atrium: Left atrium cavity is moderately dilated. Right Ventricle: Right ventricle cavity is dilated. Right Atrium: Right atrium cavity is mildly dilated. Mitral Valve: There is trace regurgitation. Aortic Valve: The aortic valve is trileaflet. The leaflets are mildly thickened. There is mild regurgitation with a centrally directed jet. Aorta: The ascending aorta is (3.9 cm). Left Ventricle Left ventricle cavity size is normal. There is mild concentric hypertrophy. Systolic function is normal with an ejection fraction of 55-60%. There are no regional LV wall motion abnormalities. Indeterminate diastolic function due to atrial fibrillation. Right Ventricle Right ventricle cavity is dilated. Left Atrium Left atrium cavity is moderately dilated. Right Atrium Right atrium cavity is mildly dilated. IVC/SVC Inferior vena cava structure is normal. RA pressures is estimated to be 8 mmHg (IVC diameter <21 mm and decreases <50% during inspiration). Mitral Valve The leaflets are mildly thickened. There is mild annular calcification. There is trace regurgitation. There is no evidence of mitral valve stenosis. Tricuspid Valve Tricuspid valve structure is normal. There is mild regurgitation with a central jet. The right ventricular systolic pressure is normal. Aortic Valve The aortic valve is trileaflet. The leaflets are mildly thickened. There is mild regurgitation with a centrally directed jet. There is no evidence of aortic valve stenosis. Pulmonic Valve There is mild pulmonic valve regurgitation. Ascending Aorta The ascending aorta is (3.9 cm). Pericardium Pericardium appears normal. There is no pericardial effusion. Study Details Overall the study quality was adequate. us Angella Carrillo NP CV ECHO PROCEDURES Final Resul t * Lipid panel (12/15/2024 8:09 AM EDT) Cholesterol Total 122 100 - 199 mg/dL [facility] Triglycerides 64 0 - 149 mg/dL [facility] HDL Cholesterol 52 >39 mg/dL [facility] VLDL Cholesterol Calculated 14 5 - 40 mg/dL [facility] LDL Chol Calc ([facility]) 56 0 - 99 mg/dL [facility] Blood Venous blood specimen / Unknown 12/15/2024 8:09 AM EDT 12/15/2024 Narrative [facility] - 12/16/2024 1:06 AM EDT Performed at: - [facility] [address] [place], [place] [id number] Software Licensing Analyst: Dona Dumont MD, Phone: [phone] Specimen Comment: A courtesy copy of this report has been sent to [phone] us Angella Carrillo NP LAB BLOOD ORDERABLES Final Res ult [facility] * (ABNORMAL) Basic metabolic panel (11/24/2024 9:37 AM EDT) Glucose 138(H) 70 - 99 mg/dL [facility] [...] - 11/25/2024 11:06 PM EDT Performed at: - [facility] [address] [id number] Software Licensing Analyst: Dona Dumont MD, Phone: [phone] us Angella Carrillo NP LAB BLOOD ORDERABLES Final Res ult [facility] 1 from Last 3 Months Insurance MEDICARE [employer] Care Teams Employment Adjudicator Relationship Specialty Start Date End Date Lj Caldwell MD [address] [place] [address] [address] MARGARITA Martin PCP - General Internal Medicine 09/19/21
== END 2025-01-31 14:32 | disposition home or self-care (01) ==
LOC: HO.HUSH 13:15
PROVIDERS: PCP Internal Medicine; Visit Provider Urology
DX: N32.81 Overactive bladder (principal)
CPT/HCPCS: 99024

== ENCOUNTER → 2025-01-31 13:15 | Outpatient (BNVA) | payer MEDICARE, OTHER, SELFPAY | PROVIDERS: PCP Internal Medicine; Visit Provider Urology | DX: N32.81 Overactive bladder (principal); Z85.46 Personal history of malignant neoplasm of prostate; N36.42 Intrinsic sphincter deficiency (ISD); Z90.79 Acquired absence of other genital organ(s) | CPT/HCPCS: 99212 ==

== ENCOUNTER 2025-03-14 09:07 | Day surgery (SDC) | payer MEDICARE, OTHER, SELFPAY ==
--- OUTSIDE RECORDS SUMMARY | 2025-02-08 16:12 | XMS_ITS | Clinical Summary ---
Author Organization [facility] Address [address] [place] [address] Phone Care Team Providers Care Fight Manager Name Role Phone Lj Caldwell MD Primary Care Provider [phone] Allergies No known active allergies Medications DILT-XR [...] Encounters Date Type Department Care Team Description 02/08/[address] [facility] [address] [facility] [address] [place] [address] Angella Carrillo NP Advice Only 02/08/[address] [facility] [address] [facility] [address] [place] [address] Chriss Arrington MD hold eliquis 01/23/[address] [facility] [address] [facility] [address] [place] [address] Bri Cardoso MA echo results 01/23/[address] [facility] [address] [facility] [address] [place] [address] Bri Cardoso MA echo results 01/18/2025 10:30 AM EDT Ancillary Procedure [facility] [address] [place] [address] Paroxysmal atrial fibrillation (CMS/HCC V24, CMS/HCC V28); Aortic dilatation (CMS/HCC V24) 12/07/[address] [facility] [address] [facility] [address] [place] [address] Angella Carrillo NP Results; returning call (Returning call ) 11/23/2024 10:40 AM EDT Office Visit [facility] [address] [place] [address] Angella Carrillo NP Paroxysmal atrial fibrillation (CMS/HCC V24, CMS/HCC V28) (Primary Dx); Hyperlipidemia, unspecified hyperlipidemia type 11/23/[address] [facility] [address] [facility] [address] [place] [address] Angella Carrillo NP 11/23/2024 Telephone [facility] [address] [place] [address] Angella Carrillo NP from Last 3 Months Surgical History Surgery Date Site/Laterality Comments OTHER SURGICAL HISTORY PROCEDURE: [place] LAPS SURG [id number] RPBIC RAD W/NRV SPARING ROBOT TOTAL KNEE ARTHROPLASTY Bilateral PROCEDURE: HISTORICAL TOTAL KNEE REPLACE CHOLECYSTECTOMY PROCEDURE: HISTORICAL CHOLECYSTECTOMY TONSILLECTOMY 1944 PROCEDURE: HISTORICAL TONSILLECTOMY OTHER SURGICAL HISTORY PROCEDURE: HISTORY OTHER; COMMENT: Insertion of artifical genitourinary sphincter CATARACT EXTRACTION PROCEDURE: HISTORICAL CATARACT REMOVAL OTHER SURGICAL HISTORY PROCEDURE: [place] CYSTO W/RESECJ ECTOPIC URETEROCELE UNI/BI APPENDECTOMY PROCEDURE: HISTORICAL APPENDECTOMY Medical History Medical History Date Comments Leucopenia DX:Leucopenia Chronic low back pain DX:Chronic low back pain Prostate cancer (CMS/HCC V24, CMS/HCC V28) DX:Prostate cancer (HCC) History of kidney stones DX:Hist ory of kidney stones Hydroureteronephrosis DX:Hydrour eteronephrosis; COMMENT: D/C'd from [facility] [place]21 Renal colic on right side DX:John al colic on right side; COMMENT: D/C'd from [facility] 08/21/21 UTI (urinary tract infection), bacterial DX:UTI (urinary tract infection), bacterial; COMMENT: D/C'd from [facility] 08/21/21 Urolithiasis DX:Urolithiasis; COMMENT: D/C'd from [facility] 08/21/21 Transaminitis DX:Transaminitis ; COMMENT: D/C'd from [facility] 08/21/21 BPH (benign prostatic hyperplasia) DX:BPH (benign [...] Care Team (Late st Contact Info) Description 03/06/2025 8:10 AM EDT Consult [facility] - [facility] [address] [facility] [address] [place] [address] Ebony Masterson NP [address] [place] [address] 03/14/2025 2:10 PM EDT Consult [facility] - [facility] [address] [place] [address] Nick Escobar MD [address] [place] [address] 05/26/2025 9:10 AM EST Office Visit [facility] [address] [place] [id number] Angella Carrillo, [place] [address] [place] [address] [place] [address] Health Maintenance Due Date Last Done Comments [...] (01/18/2025 11:10 AM EDT) Left Atrium Minor [place] 6.1 cm CV PACS Left Atrium Major [place] 6.3 cm CV PACS LA Area Sys [...] Volume 60 mL CV PACS MV Deceleration [place] 6.8 m/s2 CV PACS E Wave Deceleration [...] 40 mg/dL [facility] LDL Chol Calc ([facility]) 56 0 - 99 mg/dL [facility] 1 Blood Venous blood specimen / Unknown 12/15/2024 8:09 AM EDT 12/15/2024 Narrative [facility] - 12/16/2024 1:06 AM EDT Performed at: 01 - [address] [id number] Band Head Saw Operator: Dona Dumont MD, Phone: [phone] Specimen Comment: A courtesy copy of this report has been sent to [phone] Angella Carrillo NP LAB BLOOD ORDERABLES Final [...] 11:06 PM EDT Performed at: - [facility] [address] [id number] Band Head Saw Operator: Dona Dumont MD, Phone: [phone] us Angella Carrillo MANAGER DIABETES LAB BLOOD ORDERABLES Final Res ult [facility] 1 from Last 3 Months Insurance MEDICARE [facility] Care Teams Fight Manager Relationship Specialty Start Date End Date Lj Caldwell MD [address] [place] [address] [address] [place], [place] PCP - General Internal Medicine 09/19/21
--- OUTSIDE RECORDS SUMMARY | 2025-02-08 16:12 | XMS_ITS | Clinical Summary ---
Author Organization [facility] Address [address] [place] [address] Care Team Providers Care Manufacturing Automation Engineer Name Role Phone Unavailable Primary Care Provider [...]
--- NOTE | 2025-03-10 10:36 | HO.ANESPROP2 ---
Documented by User: Sally Barlow NP 03/13/25 09:08 HPI - Anesthesia Eval Consult details Narrative: 84 yr old male for Interstim Lead Test- Full stage Alzheimer's Dementia Atrial fibrillation: on eliquis- okay to hold for procedure, no lovenox bridging needed; saw cardiology for clearance on 03/06/25, had stress test 06/2023 that was neg for ischemia PMFSH Active Problems Active Problems: All Active Problems (Updated 01/14/25 @ 10:44 by Darlene Ramos MD) Voiding dysfunction (Acute) Urgency-frequency syndrome (Acute) Urine incontinence (Acute) FH: pancreatic cancer (Acute) Abnormal bowel habits (Acute) Past Medical History Medical History (Updated 03/14/25 @ 09:20 by Aida Lara RN) Osteoporosis Prostate cancer Hyperlipidemia Back pain Alzheimer's dementia Afib Family History Family history of problems with anesthesia: No Surgical History Surgical History (Updated 03/14/25 @ 09:32 by Aida Lara RN) History of partial knee replacement Hx of cataract extraction Hx of appendectomy Hx of tonsillectomy Status post implantation of artificial urinary sphincter Hx of prostatectomy Hx of colonoscopy History of Problems with Anesthesia: No Social History Social History Are you a primary home health care social worker to a significant other at home: No Do you presently have visiting nurse or other home services: No Patient Tobacco Use Status: Never used Tobacco Use of substances other than those prescribed or required for medical reasons: No Are you DNR?: No Advance Directives: No Advance Directives Information Provided: Yes Meds Allergies Allergy/AdvReac Type Severity Reaction Status Date / Time No Known Allergies Allergy Verified 03/14/25 09:33 Home Medications ?Medication ?Instructions ?Recorded ?Confirmed ?Last Taken ?Type acetaminophen 325 mg capsule 325 mg PO QID PRN Pain, Mild 08/05/24 03/14/25 Unknown History apixaban 5 mg tablet (Eliquis) 5 mg PO BID 08/05/24 03/14/25 03/11/25 History cholecalciferol (vitamin D3) 25 25 mcg PO DAILY 08/05/24 03/14/25 Unknown History mcg (1,000 unit) capsule diltiazem HCl 120 mg 120 mg PO BID 0203/14/25 03/14/25 06:00 History capsule,extended release 12 hr donepezil 5 mg tablet 5 mg PO BEDTIME 08/05/24 03/14/25 Unknown History mecobalamin (vitamin B12) 500 mcg 500 mcg PO DAILY 08/05/24 03/14/25 Unknown History chewable tablet [id number] 120 mcg-lutein 1 tab PO DAILY 08/05/24 03/14/25 Unknown History 150 mcg-herb 50 mg chewable tablet (Alive Men[facility] 50 Plus Multivitamin) rosuvastatin 10 mg tablet 10 mg PO DAILY 08/05/24 03/14/25 Unknown History alendronate 70 mg tablet 70 mg PO QWEEK 12/05/24 03/14/25 Unknown History Exam Narrative Narrative: EKG 02/2025 Atrial fibrillation, rate 75, rightward axis, abnormal ECG, no previous ECGs for comparison Echo 12/2024 Mild concentric LVH, normal LVEF 55-60%, no wall motion abnormalities, normal LV cavity size. Indeterminate diastolic dysfunction due to atrial fibrillation, moderately biatrial dilatation, dilated RV. Mild aortic insufficiency, trace tricuspid regurgitation Assessment and Plan Final Anesthetic Review Family History of Problems with Anesthesia: No History of Problems with Anesthesia: No Documented by User: Yuri Weeks MD 03/14/25 13:26 [facility] Past Medical History Medical History (Updated 03/14/25 @ 09:20 by Aida Lara, RN) Osteoporosis Prostate cancer Hyperlipidemia Back pain Alzheimer's dementia Afib Surgical History Surgical History (Updated 03/14/25 @ 09:32 by Aida Lara, RN) History of partial knee replacement Hx of cataract extraction Hx of appendectomy Hx of tonsillectomy Status post implantation of artificial urinary sphincter Hx of prostatectomy Hx of colonoscopy Social History Social History Are you a primary home health care social worker to a significant other at home: No Do you presently have visiting nurse or other home services: No Patient Tobacco Use Status: Never used Tobacco Use of substances other than those prescribed or required for medical reasons: No Are you DNR?: No Advance Directives: No Advance Directives Information Provided: Yes Meds Allergies Allergy/AdvReac Type Severity Reaction Status Date / Time No Known Allergies Allergy Verified 03/14/25 09:33 Home Medications ?Medication ?Instructions ?Recorded ?Confirmed ?Last Taken ?Type acetaminophen 325 mg capsule 325 mg PO QID PRN Pain, Mild 08/05/24 03/14/25 Unknown History apixaban 5 mg tablet (Eliquis) 5 mg PO BID 08/05/24 03/14/25 03/11/25 History cholecalciferol (vitamin D3) 25 25 mcg PO DAILY 08/05/24 03/14/25 Unknown History mcg (1,000 unit) capsule diltiazem HCl 120 mg 120 mg PO BID 08/05/24 03/14/25 03/14/25 06:00 History capsule,extended release 12 hr donepezil 5 mg tablet 5 mg PO BEDTIME 08/05/24 03/14/25 Unknown History mecobalamin (vitamin B12) 500 mcg 500 mcg PO DAILY 08/05/24 03/14/25 Unknown History chewable tablet [id number] 120 mcg-lutein 1 tab PO DAILY 08/05/24 03/14/25 Unknown History 150 mcg-herb 50 mg chewable tablet (Alive Men's 50 Plus Multivitamin) rosuvastatin 10 mg tablet 10 mg PO DAILY 08/05/24 03/14/25 Unknown History alendronate 70 mg tablet 70 mg PO QWEEK 12/05/24 03/14/25 Unknown History Exam Airway Mallampati Class: I TM Dist: <=3cm Neck ROM: Full Loose/Missing/Broken Teeth: No Heart: ok. see above. Lungs: ok Assessment and Plan Assessment Anesthesia Assessment: Anesthesia Plan Discussed and Chart Reviewed Final Anesthetic Review NPO: Yes ASA Class: III Final Preanesthetic Review: No Changes in Pt Med Stat, Meds/Allgs Chart Reviewed, Consent Obtained/Reviewed and Anes Risks/Benef Reviewed Patient Risk: Intermediate Procedure Risk: Intermediate Anesthetic Plan Anesthetic Plan: GA and Agree w/ Assess. and Plan Disposition: Standard PACU
[2025-03-10 14:38] VITALS: BMI 22.3
--- NOTE | ~2025-03-14 | FL_ITS ---
EXAMINATION: XR FLUOROSCOPY WITH IMAGES CLINICAL INFORMATION: Sacral stimulator placement. COMPARISON: None available. TECHNIQUE: Fluoroscopy provided to: Dr. Kt Carranza Fluoroscopy time: 32 seconds Dose: 8.5 mGy Images: 2 FINDINGS: 2 fluoroscopic spot images of the sacrum obtained during sacral stimulator placement. Please refer to the full operative report for details. FL/FL guidance in OR IMPRESSION: Fluoroscopic guidance. Electronically signed by: Bhanu Smith MD 03/14/2025 02:02 PM EDT
[2025-03-14 09:30] VITALS: BMI 23.0
[2025-03-14 09:38] VITALS: BP 120/76; PULSE 59; RESP 15; TEMP 36.6; O2SAT 98
[2025-03-14] MEDS: Lactated Ringers 1,000 ML 100 ML IVCONT (09:53)
--- NOTE | 2025-03-14 11:37 | MHC.SHP ---
Pre-Procedural Eval Section A - 24 Hr Update-Section A only Date of Service: 03/14/25 The patient is an INPATIENT: No The patient has been examined within 24 hours of the surgical procedure. The History & Physical has been completed within 30 days and I have reviewed it.: Yes Section B - Complete if H&P > 30 days Chief Complaint: Other specified disorders of urinary system Allergies: Allergies Allergy/AdvReac Type Severity Reaction Status Date / Time No Known Allergies Allergy Verified 03/14/25 09:33 Plan Diagnosis/Plan: Unchanged I have reviewed the history and physical and performed a pertinent physical examination on my patient. No changes have occurred unless specified. Sacral neuromodulation bladder pacemaker lead implant. Time Spent With Patient Time: Total time managing care of this patient today ____ minutes.
--- NOTE | 2025-03-14 11:40 | W.PM.OPN ---
Operative Note Operative Note Date of Service: 03/14/25 Narrative: PreOperative Diagnosis:? ?? Urinary Frequency, Urge Incontinence Post Operative Diagnosis:? Urinary Frequency, Urge Incontience Procedure:?Stage 2. Sacral neuromodulation--- Lead Implant, with generator/pacemaker implant ? Programming Surgeon:?Dr Darlene Ramos Anesthesia:? General Procedure: After informed consent was verified the patient was brought to the operating room. Anesthesia was performed per protocol on the OR stretcher.? The patient was repositioned to the OR table in prone? position, padding used including axillary rolls.? IV Antibiotics administered.? The patient was prepped and draped in the usual sterile fashion.? Safety pause time-out was performed. Fluroscopy used during the case.? The Sacral 3 shen was identified on the left side, the spinal needle was placed into the S3 foramen and identified with fluoroscopy in the AP and lateral position, the spinal needle was tested and there was good motor response, great toe deflection and valencia noted.? The stylet was placed through the spinal needle, after removing the spinal needle the introducer was passed over the stylette, the stylette was removed, the the lead was placed through the introducer.? The electrodes were tested all 4 electrodes had good motor response when tested.? A second incision was made on the upper buttock below the iliac crest on the right side.? The lead was tunnelled to the this second incision site.? The wound was copiously irrigated with antibiotic irrigation.?Cautery was used to create a pouch in the subcutaneous tissue to house the pacemaker. The pacemaker was brought to the field and attached to the lead. The pacemaker was placed in the wound with writing facing upward; the impedence was checked and verified. There was good hemostasis. The wound was closed with 3-0 chromic and 4-0 monocryl for the skin. The lead insertion site incision was closed with 4-0 monocryl. The Generator/pacemaker was programmed - program 1 on 1.2 mA The patient placed supine on the OR stretcher.? The patient tolerated the procedure well and was transferred to the recovery area in stable condition. Complications:? None EBL: minimal (<5 mL) Drains:? None
[2025-03-14 13:45] VITALS: BP 134/76; PULSE 60; RESP 16; TEMP 36.3; O2SAT 96
[2025-03-14 13:50] VITALS: BP 116/58; PULSE 54; RESP 16; O2SAT 96
[2025-03-14 13:55] VITALS: BP 101/62; PULSE 50; RESP 16; O2SAT 98
[2025-03-14 14:00] VITALS: BP 126/82; PULSE 51; RESP 18; O2SAT 98
[2025-03-14 14:15] VITALS: BP 105/53; PULSE 59; RESP 18; TEMP 36.2; O2SAT 96
== END 2025-03-14 15:01 | disposition home or self-care (01) ==
PROVIDERS: PCP Internal Medicine; Visit Provider Urology
PROC: (CPT 64561; principal; 2025-03-14 10:50)
DX: N39.8 Other specified disorders of urinary system (principal); N39.41 Urge incontinence; R35.0 Frequency of micturition; N32.81 Overactive bladder; Z85.46 Personal history of malignant neoplasm of prostate; Z98.52 Vasectomy status; M54.9 Dorsalgia, unspecified; I10 Essential (primary) hypertension; E78.5 Hyperlipidemia, unspecified; I48.19 Other persistent atrial fibrillation; K57.30 Diverticulosis of large intestine without perforation or abscess without bleeding; G30.8 Other Alzheimer's disease; F02.80 Dementia in other diseases classified elsewhere, unspecified severity, without behavioral disturbance, psychotic disturbance, mood disturbance, and anxiety; Z79.01 Long term (current) use of anticoagulants; Z79.899 Other long term (current) drug therapy; Z90.49 Acquired absence of other specified parts of digestive tract
CPT/HCPCS: 64561; 64590; C1767; C1778; C1787; J0665; J0690; J1580; J2003; J2704; J3010; J3374

== ENCOUNTER → 2025-03-14 09:07 | Outpatient (BNV) | payer MEDICARE, OTHER, SELFPAY | PROVIDERS: PCP Internal Medicine; Visit Provider Urology | DX: N39.41 Urge incontinence (principal); R39.15 Urgency of urination | CPT/HCPCS: 64590 ==

== ENCOUNTER 2025-03-30 13:53 | Outpatient (AMB) | payer MEDICARE, OTHER, SELFPAY ==
--- NOTE | 2025-03-30 14:07 | MHC.OFFVIS ---
Intake Visit Reasons: Interstim follow up Intake Note: Patient presents to office today for interstim follow up Urology Medication:Vitamin B12 Blood Thinner:Apixaban Antibiotic Allergies:None Administrator Social Welfare Required: No Accompanied by: Self / Same As Patient Allergies No Known Allergies Allergy (Verified 03/30/25 14:07) HPI Comments Details: 03/30/2025 Wicho status post InterStim pacemaker and lead implant for voiding dysfunction. History of Present Illness The patient is an 84-year-old male presenting with voiding dysfunction following the InterStim pacemaker and lead implant. The patient underwent the procedure for voiding dysfunction and has been experiencing urinary urgency and incontinence. The patient reports that he has been keeping a chart of his urinary habits, noting seven dry and seven wet episodes daily. He experiences urgency without warning, and recently had an episode where he felt urgency 20 minutes after urinating. Post-operatively, the patient has been in contact with a insurance verification representative to adjust the settings of the device, as he initially did not feel any stimulation until the settings were increased to 4.1. Despite adjustments, the patient reports no significant change in symptoms, feeling as though he never had the surgery. The patient also reports skin irritation at the incision site, with redness noted but no signs of infection. Results - Urinalysis: Clear urine, no abnormalities noted Plan 1. Voiding Dysfunction - Adjust InterStim device settings to find optimal stimulation level. - Consider trying different programs as current settings have not improved symptoms. - Follow-up with insurance verification representative for further adjustments and monitoring. 2. Post-Operative Status Following Interstim Pacemaker And Lead Implant - Monitor incision site for signs of infection or complications. - Educate patient on signs of potential complications such as bleeding or exposure of the lead. 02/13 Follow-up from phase 1 InterStim Good success Would like to move ahead with Part 2 01/13/2025--Wicho is an 84-year-old male with history of prostate cancer here as a new patient evaluation for complaints of urinary incontinence. Urinalysis is negative. History of Present Illness - The patient is an 84-year-old male presenting with urinary incontinence. - He has a history of prostate cancer treated with radical prostatectomy in 2010, leading to urinary incontinence. - Despite attempts with multiple anticholinergics, including Gemtesa and artificial urinary sphincter x 2, his incontinence persists. - Bladder wall thickening and diverticulae were noted on a recent CAT scan, indicating bladder muscle remodeling like contributing to bladder spasms. - The patient also has dementia and Alzheimer's disease, managed with Donepezil, which may contribute to urinary frequency symptoms. Discussion: The sacral nerves play a vital role in controlling the bladder and bowel muscles.?When these nerves are stimulated, it can help regulate their function, improving control and reducing symptoms.?I discussed that Sacral neuromodulation is a therapy the sends impulses to the sacral nerve that control bladder and bowel function. Results - CAT scan: 10/03/24--Bladder wall thickening and diverticulae observed. - Urinalysis: Negative. Plan - Evaluate the use of a bladder pacemaker with a test phase to determine its effectiveness in managing bladder spasms. - Consider Botox injections if the pacemaker does not provide relief, noting the risk of urinary retention. - Advise increased fluid intake to support kidney function despite urinary frequency. PFSH Medical History Osteoporosis Prostate cancer Hyperlipidemia Back pain Alzheimer's dementia Afib Surgical History History of partial knee replacement Hx of cataract extraction Hx of appendectomy Hx of tonsillectomy Status post implantation of artificial urinary sphincter Hx of prostatectomy Hx of colonoscopy Social History Are you a primary childbirth and infant care teacher to a significant other at home: No Do you presently have visiting nurse or other home services: No Patient Tobacco Use Status: Never used Tobacco Review of Systems Const All systems reviewed & are unremarkable except as noted in HPI and below Reports no additional complaints Eyes Reports no additional complaints ENT Reports no additional complaints Card Reports no additional complaints Resp Reports no additional complaints GI Reports no additional complaints Reports as per HPI Musc Reports no additional complaints Skin/Breast Reports system reviewed and no additional complaints, except as documented Neuro Reports no additional complaints Psych Reports no additional complaints Endo Reports no additional complaints Bandar/Lymph Reports no additional complaints Aller/Immun Reports no additional complaints Results AMB Urinalysis, Automated UA Leukoctes 0 Mayra/uL Last Edit by Eloisa Black on 03/30/25 16:31 UA Nitrite Negative Last Edit by Eloisa Black on 03/30/25 16:31 UA Urobilinogen 0.2 mg/dL Last Edit by Eloisa Black on 03/30/25 16:31 UA Protein 15 mg/dL Last Edit by Eloisa Black on 03/30/25 16:31 UA pH 6.0 Last Edit by Eloisa Black on 03/30/25 16:31 UA Blood 0 Fred/uL Last Edit by Eloisa Black on 03/30/25 16:31 UA Specific Glen 1.020 Last Edit by Eloisa Black on 03/30/25 16:31 UA Ketone Positive Last Edit by Eloisa Black on 03/30/25 16:31 UA Bilirubin 0 mg/dL Last Edit by Eloisa Black on 03/30/25 16:31 UA Glucose 0 mg/dL Last Edit by Eloisa Black on 03/30/25 16:31 Results Reviewed Results Reviewed: Laboratory Last Values Urine pH (Auto) 6.0 03/30/25 16:10 Specific Glen (Auto) 1.020 03/30/25 16:10 Urine Protein (Auto) 15 mg/dL 03/30/25 16:10 Glucose (UA)(Auto) 0 mg/dL 03/30/25 16:10 Urine Ketones (Auto) Positive 03/30/25 16:10 Urine Blood (Auto) 0 Fred/uL 03/30/25 16:10 Urine Nitrite (Auto) Negative 03/30/25 16:10 Urine Bilirubin (Auto) 0 mg/dL 03/30/25 16:10 Urine Urobilinogen (Auto) 0.2 mg/dL 03/30/25 16:10 Leukocyte Esterase (Auto) 0 Mayra/uL 03/30/25 16:10 Assessment & Plan Assessment & Plan Orders: Orders AMB Urinalysis Automated Today R32 - Unspecified urinary incontinence Coding
== END 2025-03-30 15:19 | disposition home or self-care (01) ==
LOC: HO.HUSH 13:53
PROVIDERS: PCP Internal Medicine; Visit Provider Urology
DX: R32 Unspecified urinary incontinence (principal)

== ENCOUNTER → 2025-03-30 13:53 | Outpatient (BNVA) | payer MEDICARE, OTHER, SELFPAY | PROVIDERS: PCP Internal Medicine; Visit Provider Urology | DX: N32.81 Overactive bladder (principal); N39.8 Other specified disorders of urinary system; R32 Unspecified urinary incontinence; Z79.01 Long term (current) use of anticoagulants; Z85.46 Personal history of malignant neoplasm of prostate | CPT/HCPCS: 81003; 99212 ==

== ENCOUNTER 2025-05-01 13:08 | Outpatient (AMB) | payer MEDICARE, OTHER, SELFPAY ==
--- NOTE | 2025-05-01 13:14 | A.OFFVIS_ITS ---
Vital Signs 05/01/25 13:18 Height 5 ft 9 in Weight 152 lb 1.903 oz BMI 22.5 BP 108/78 Blood Pressure Location Lt brachial Position Sitting Intake Visit Reasons: 4 month Intake Note: Wicho presents in the office as a 4 month follow up. CC: States that he has tried a lot of tests but no conclusons thus far. Allergies No Known Allergies Allergy (Verified 05/01/25 13:22) HPI HPI 4 month: Details: 84 yr old m here for f/u for abn bowel habits RECAP He had noted longer stools, more volume, no blood he was going one-two times a day no diarrhea the stool is large and not easily flushed he had colonoscopy 1-2 yrs ago and had x2 polyps removed at [facility] by Johnny sanchez FH of pancreatic ca-- I did colonoscopy 09/29/24 Colonoscopy 09/29/24 Impression and Post Procedure Diagnosis: diverticulosis colon polyps internal hemorrhoids Path: TA, nml random bx CT atherosclerotic disease panc calcifications, thickening of bladder INTERIM: he has fatigue generally, otherwise well he got the interstim and it has helped some what not as incontinent as before MRI pancreas- no mass tiny cyst seen denies nausea or vomiting appetite is v good no abdominal pain no diarrhea and no constipation but has large bowel motions EXAM: GENERAL: The patient is well developed and nontoxic. VITAL SIGNS:see workflow HEENT: Nonicteric sclerae, PERRLA, EOMI. Oropharynx clear. Moist mucous membranes. Conjunctivae appear well perfused. No thyroid mass. CHEST: Chest wall is nontender. HEART: Regular rate and rhythm without murmurs. LUNGS: Clear to auscultation bilaterally. ABDOMEN: Soft, positive bowel sounds, nontender, no organomegaly.no flank tenderness SKIN: No rash, no excessive bruising, petechiae, or purpura. NEUROLOGIC: Cranial nerves II-XII intact without motor/sensory deficit. Psych: normal affect A/P: 1/ Abn bowel habits, previous hx of prostate ca, and could be from meds also 2/ urine incontinence, related to surgery, may also neuro component, abn imaging of bladder --on interstim PLAN: 1/ cont to take fruit, can use more kiwi 2/ repeat MRi in 1 year or so 3/ talk to PCP in case needs change in CPAP settings [facility] Medical History Osteoporosis Prostate cancer Hyperlipidemia Back pain Alzheimer's dementia Afib Surgical History History of partial knee replacement Hx of cataract extraction Hx of appendectomy Hx of tonsillectomy Status post implantation of artificial urinary sphincter Hx of prostatectomy Hx of colonoscopy Social History Are you a primary intensive care anaesthetist to a significant other at home: No Do you presently have visiting nurse or other home services: No Patient Tobacco Use Status: Never used Tobacco Physical Exam Vital Signs: Last Vital Signs BP 108/78 05/01/25 13:18 BMI result Body Mass Index 22.5 Assessment & Plan Assessment & Plan (1) Urine incontinence: Code(s): R32 - Unspecified urinary incontinence Category: Medical Plan: as above Medications: Discontinued oxycodone Partial Fill upon patient request. Discontinued Reason: Patient Completed Course 5 mg PO .q6-q8h PRN 8 tabs 0RF pain Coding Level of Care Code Est Pt Level 3 (95437) Diagnoses Urine incontinence R32
[2025-05-01 13:18] VITALS: BP 108/78; BMI 22.5
--- OUTSIDE RECORDS SUMMARY | 2025-05-01 15:16 | XMS_ITS | Data Portability ---
Author Organization [place] - [facility], Allergy Address [address] [address] Care Team Providers Care Wire Fence Erector Name Role Phone MACRINA MCINTYRE Primary Care Provider [phone] Assessment Encounter Date Assessment Date Assessment LastModified [...] Sensorine ural hearing loss of bilateral ears [id number] Active 2020 Sensorine ural hearing loss, bilateral ; Note: Date Diagnosed : 07/06/2020 11:18 AM (H90.3) Not Available [facility] 4 03:07:43 Impacted cerumen of bilateral ears [id number] Active 2020 Impacted cerumen, bilateral ; Note: Date Diagnosed : 07/06/2020 11:17 AM (H61.23) Not Available [facility] 4 03:07:42 Problem Notes None recorded. Procedures Surgical History Date Name Laterality Status Provider Name and Address Organization Details Recorded Time 07/05/19 25 Cerumen removal with microscope bilateral completed BRYANT MCCLAIN MD [address] [place] [address], [place], [id number], [facility] - [facility] 07/05/2024 11:34:33 Tonsillectomy completed Yasmine Lebron [facility] 07/05/2024 11:15:22 Appendectomy completed Yasmine Lebron [facility] 07/05/2024 11:15:28 cholecystectomy completed Yasmine Lebron [facility] 07/05/2024 11:15:35 Cataract Surgery completed Yasmine Lebron [facility] 07/05/2024 11:16:10 Imaging Results None recorded. Procedure [...] mg tablet 07/05 completed Medicati on ID: [id number] B rand Name: catherine london Send Method: [...] tended release 2020 active Medicati on ID: [id number] B rand Name: Yulia ga Send Method: [...] Diagnosis SNOMED-CT Code Diagnosis ICD10 Code Diagnosis IMO Codes Diagnosis Note [id number] BRYANT MCCLAIN MD [facility] [address] [address] 07/05/2024 10:54:13 07/05/2024 11:30:48 Impacted cerumen of bilateral ears [id number] H61.23 Health Concerns Section Related Observation LastModified by Organization Detai ls LastModified Time None Recorded Concern Status LastModified by Organization Details LastModified Time None Recorded Advance Directives Directive None Recorded Payers Insurance Date Sequence Insurance Name Policy Number Policy Cantu Covered Member ID Cantu Member ID Guarantor Name 06/30/2024 1 MEDICARE B-AK: [employer] Wicho Vergara [id number] Wicho Vergara 07/11/2024 2 [facility] INDEMNITY PLAN (INDEMNITY) [id number] Barbara Vergara [id number] Wicho Vergara Notes Date Note Type Note Provider Name and Address Organization Details Recorded Time 07/05/2024 text/html ROS as noted in the HPI History of cerumen impaction: yes Hearings loss: yes Qtip use: no Tinnitus: noVertigo: no Pain: no Drainage: no History of ear infections: no History of ear surgeries: no BRYANT MCCLAIN MD [address] [place] [address], [id number], [facility] - [facility] 07/05/2024 11:35:14
--- OUTSIDE RECORDS SUMMARY | 2025-05-01 15:16 | XMS_ITS | Clinical Summary ---
Author Organization [facility] Address [address] [place] [address] Phone Care Team Providers Care Life Insurance Specialist Name Role Phone Lj Caldwell MD Primary Care Provider [phone] Allergies No known active allergies Medications DILT-XR [...] (one) time each day. Active Active Problems Problem Noted Date Diagnosed Date Longstanding persistent atri al fibrillation ([facility] V24, CMS/[facility] V28) 03/06/2025 Overview (03/06/2025): - anticoagulated with apixaban - last EKG in our records with NSR is from 07/2022 -Most recent echocardiogram 12/2024 showing mild concentric LVH, normal LVEF 55 to 60%, no wall motion abnormalities, normal LV cavity size, indeterminate diastolic dysfunction due to his atrial fibrillation, moderately biatrial dilatation, dilated RV, with mild AI and trace TR. -He had a pharmacologic nuclear stress test 07/19/2023 at [facility] completed for chest discomfort, , without fixed or reversible defects with normal LVEF greater than 70% Assessment & Plan (03/06/2025 9:42 AM EDT): The patient has longstanding persistent atrial fibrillation. His last EKG is sinus rhythm in our records is from 2022. He intermittently has some perception of elevated heart rates and fatigue when he does heavy or prolonged exertion out in his yard, but he takes the rest, and his symptoms shortly janak. He has not had any bleeding issues. His heart rate is well-controlled on his current dose of diltiazem. He is instructed that if he has any falls with a head strike to seek emergency medical attention for evaluation. He is advised to be careful and thoughtful for any activity above his head as that would increase his likelihood to lose his balance and hurt himself. Given his increased risk for falls, EP evaluation as arranged by his primary team is planned for March for consideration of Watchman. For now though, we will continue his current dose of apixaban. Despite his age, he does not qualify for dose adjustment based on neither his weight nor his renal function. Primary hypertension 03/06/2025 Assessment & Plan (03/06/2025 9:38 AM EDT): The patient possibly has a diagnosis of elevated blood pressure. Currently, his blood pressure is well-controlled on his prescribed dose of diltiazem. Continue the same Pure hypercholesterolemia 03/06/2025 Assessment & Plan (03/06/2025 9:38 AM EDT): Well-controlled lipid profile on current dose statin without known CAD. Continue current treatment plan Encounters Date Type Department Care Team Description 04/18/2025 3:25 PM EDT Consult [facility] Cardiology [facility] [address] [place] [address] Nick Escobar MD Longstanding persistent atrial fibrillation (CMS/HCC V24, CMS/HCC V28) (Primary Dx) 03/08/2025 Telephone [facility] - [address] [place] [address] Ebony Masterson NP 03/06/2025 8:10 AM EDT Consult [facility] - [address] [place] [address] Ebony Masterson NP Longstanding persistent atrial fibrillation (CMS/HCC V24, CMS/HCC V28) (Primary Dx); Paroxysmal atrial fibrillation (CMS/HCC V24, CMS/HCC V28); Pure hypercholesterolemia; Primary hypertension; Preop cardiovascular exam 02/08/2025 Telephone [facility] [address] [place] [phone] Angella Carrillo NP 02/08/2025 Telephone [facility] [address] [place] [address] Chriss Arrington MD from Last 3 Months Surgical History Surgery Date Site/Laterality Comments OTHER SURGICAL HISTORY PROCEDURE: [place] LAPS SURG [id number] RPBIC RAD W/NRV SPARING ROBOT TOTAL KNEE [...] pain DX:Chronic low back pain Prostate cancer ([facility] V24, [facility] V28) DX:Prostate cancer ([facility]) History of kidney stones DX:Hist ory of kidney stones Hydroureteronephrosis DX:Hydrour eteronephrosis; COMMENT: D/C'd from [facility] 08/21/21 Renal colic on right side DX:John al colic on right side; COMMENT: D/C'd from [facility] 08/21/21 UTI (urinary tract infection), bacterial DX:UTI (urinary tract infection), bacterial; COMMENT: D/C'd from [facility] 08/21/21 Urolithiasis DX:Urolithiasis; COMMENT: D/C'd from [facility] 08/21/21 Transaminitis DX:Transaminitis ; COMMENT: D/C'd from [facility] 08/21/21 BPH (benign prostatic hyperplasia) DX:BPH (benign prostatic hyperplasia) GERD (gastroesophageal reflux disease) DX:GERD (gastroesophageal reflux disease) Varicose veins of both lower extremities DX: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 DX :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 ( [facility] V24, [facility] V28) DX:Adenocarcinoma of prostat e ([facility]) Lumbar herniated disc DX:Lumbar herniated [...] Sign Reading Time Taken Comments Blood Pressure 110/72 04/18/2025 3:26 PM EDT Pulse 69 04/18/2025 3:26 PM EDT Temperature - - Respiratory Rate - - Oxygen Saturation 97% 04/18/2025 3:26 PM EDT Inhaled Oxygen Concentration - - Weight 70.2 kg (154 lb 12.8 oz) 04/18/2025 3:26 PM EDT Height 172.7 cm (5' 8 ) 04/18/2025 3:26 PM EDT Body Mass Index 23.54 04/18/2025 3:26 PM EDT Plan of Treatment Upcoming Encounters Date Type Department Care Team (Late st Contact Info) Description 05/26/2025 9:10 AM EST Office Visit [facility] [address] [place] [address] Angella Carrillo NP [address] [place] [address] [address] [place] [id number] Health Maintenance Due Date Last Done Comments Falls Risk Assessment 06/01/2022 Medicare Annual Wellness Visit 06/01/2022 Social Influencers of Health Screening 06/01/2022 Depression Screening 06/22/2024 Hypertension/CHF/CAD Annual BMP Blood Test 11/24/2025 11/24/2024 Cholesterol Screening (Lipid Panel) 12/15/2029 12/15/2024 DTaP,Tdap,and Td Vaccines (2 - Td or Tdap) 04/03/2035 04/03/2025 Zoster Vaccines Completed 02/01/2018, 11/06/2017 Pneumococcal Vaccine: 50+ Years Completed 05/05/2019, 11/06/2017 Hepatitis A Vaccines Aged Out 05/16/2019, 04/12/2019, 04/11/2019 No longer eligible based on patient's age to complete this topic RSV Immunization Adult Patients Completed 05/08/2023 COVID-19 Vaccine Completed 03/24/2025, , 03/26/2023, Additional history exists Influenza Vaccine Completed 03/24/2025, , 03/26/2023, Additional history exists HIB Vaccines Aged Out No longer eligi [...] Procedure Name Priority Date/Time Associated Diagnosis Comments ECG 12-LEAD Routine 04/18/2025 3:25 PM EDT Longstanding persistent atrial fibrillation (CMS/HCC V24, CMS/HCC V28) ECG 12-LEAD Routine 03/06/2025 9:45 AM EDT Paroxysmal atrial fibrillation (CMS/HCC V24, CMS/HCC V28) LIPID PANEL Routine 12/15/2024 8:09 AM EDT Hyperlipidemia, unspecified hyperlipidemia type BASIC METABOLIC PANEL Routine 11/24/2024 9:37 AM EDT Paroxysmal atrial fibrillation (CMS/HCC V24, CMS/HCC V28) from Last 3 Months or Most Recently Relevant to Health Maintenance Results * ECG 12 lead (03/06/2025 9:45 AM EDT) Ventricular Rate ECG 75 BPM GEMUSE Atrial Rate 441 BPM GEMUSE QRS Duration 88 ms GEMUSE Q-T Interval 362 ms GEMUSE QTc 404 ms GEMUSE R Bode[place] 90 degrees GEMUSE T [place] 25 degrees GEMUSE ECG Interpretation Atrial fibrillation , known, anticoagulated Rightward axis Abnormal ECG No previous ECGs available Confirmed by Ramu BELTRE JOHN ([id number]) on 03/13/2025 8:14:23 AM GEMUSE 03/06/2025 8:10 AM EDT 03/13/2025 8:14 AM EDT us Ebony Masterson HAZARDOUS WASTE TECHNICIAN ECG ORDERABLES Edited Result - Final GEMUSE * Lipid panel (12/15/2024 8:09 AM EDT) Cholesterol Total 122 100 - 199 mg/dL [facility] Triglycerides 64 0 - 149 mg/dL [facility] HDL Cholesterol 52 >39 mg/dL [facility] VLDL Cholesterol Calculated 14 5 - 40 mg/dL [facility] LDL Chol Calc (NIH) 56 0 - 99 mg/dL [facility] Blood Venous blood specimen / Unknown 12/15/2024 8:09 AM EDT 12/15/2024 Narrative [facility] - 12/16/2024 1:06 AM EDT Performed at: 01 - [facility] [address] [id number] Mobile Crane Operator: Dona Dumont MD, Phone: [phone] Specimen Comment: A courtesy copy of this report has been sent to [phone] Angella Carrillo NP LAB BLOOD ORDERABLES Final [...] 11:06 PM EDT Performed at: 01 - [facility] [address] [id number] Mobile Crane Operator: Dona Dumont MD, Phone: [phone] us Angella Carrillo NP LAB BLOOD ORDERABLES Final Res ult [facility] 1 from Last 3 Months or Most Recently Relevant to Health Maintenance Insurance MEDICARE [facility] Care Teams Life Insurance Specialist Relationship Specialty Start Date End Date Lj Caldwell MD [address] [place] [address] [address] [place], [place] PCP - General Internal Medicine 09/19/21
== END 2025-05-01 13:55 | disposition home or self-care (01) ==
LOC: HO.HGI 13:09
PROVIDERS: PCP Internal Medicine; Visit Provider Internal Medicine Gastroenterology
DX: R32 Unspecified urinary incontinence (principal)
CPT/HCPCS: 99213

== ENCOUNTER → 2025-05-01 13:08 | Outpatient (BNVA) | payer MEDICARE, OTHER, SELFPAY | PROVIDERS: PCP Internal Medicine; Visit Provider Internal Medicine Gastroenterology | DX: R32 Unspecified urinary incontinence (principal) | CPT/HCPCS: 99212 ==

== ENCOUNTER 2025-05-11 10:18 | Outpatient (AMB) | payer MEDICARE, OTHER, SELFPAY ==
--- NOTE | 2025-05-11 10:26 | A.OFFVIS_ITS ---
Intake Visit Reasons: Interstim F/U Intake Note: Patient presents to office today for interstim follow up Urology Medication: Blood Thinner:Apixaban Antibiotic Allergies:None Veterinary Poultry Inspector Required: No Accompanied by: Self / Same As Patient Allergies No Known Allergies Allergy (Verified 05/11/25 10:27) Medication List - Last Reconciled 05/11/25 by Darlene Ramos MD acetaminophen 325 mg PO QID PRN alendronate 70 mg PO QWEEK apixaban (Eliquis) 5 mg PO BID cholecalciferol (vitamin D3) 25 mcg PO DAILY diltiazem HCl ER (DILT-XR) 120 mg PO DAILY donepezil 5 mg PO BEDTIME mecobalamin (vitamin B12) 500 mcg PO DAILY jl-tc-acqda-lutein-herbal 293 120 mcg-150 mcg -50 mg (Alive Men's 50 Plus Multivitamin) 1 tab PO DAILY rosuvastatin 10 mg PO DAILY HPI Comments Details: 05/11/25--Wicho is here for follow-up, he has voiding dysfunction with urinary incontinence and is status post InterStim pacemaker implant. He has a history of radical prostatectomy and has failed multiple modalities including PO anticholinergics, and artificial urinary sphincter. History of Present Illness The patient is an 84-year-old individual presenting with voiding dysfunction and urinary incontinence. The patient is status post sacral neuromodulation, medronic interstim. Despite these interventions, the patient continues to experience significant urinary incontinence. He states that they had a fu with the Medronic Rep and settings were changes to Program 3 amplitude 5.3. He has noted some improvement on that setting. Urinalysis today--no signs of infection or other abnormalities. Results - Urinalysis: Negative Plan 1. Voiding Dysfunction 2. Urinary Incontinence - Continue with current management strategies, including the use of the intrastim pacemaker settings - Monitor symptoms and adjust pacemaker settings as needed. - Follow-up in three weeks to assess symptom progression and management efficacy. 3. Prostate cancer, h/o radical prostatectomy monitor PSA 03/30/2025 Wicho status post InterStim pacemaker and lead implant for voiding dysfunction. History of Present Illness The patient is an 84-year-old male presenting with voiding dysfunction following the InterStim pacemaker and lead implant. The patient underwent the procedure for voiding dysfunction and has been experiencing urinary urgency and incontinence. The patient reports that he has been keeping a chart of his urinary habits, noting seven dry and seven wet episodes daily. He experiences urgency without warning, and recently had an episode where he felt urgency 20 minutes after urinating. Post-operatively, the patient has been in contact with a software sales representative to adjust the settings of the device, as he initially did not feel any stimulation until the settings were increased to 4.1. Despite adjustments, the patient reports no significant change in symptoms, feeling as though he never had the surgery. The patient also reports skin irritation at the incision site, on exam, mild erythema to skin, no signs of infection. Results - Urinalysis: Clear urine, no abnormalities noted Plan 1. Voiding Dysfunction - Adjust InterStim device settings to find optimal stimulation level. - Consider trying different programs as current settings have not improved symptoms. - Follow-up with software sales representative for further adjustments and monitoring. 2. Post-Operative Status Following Interstim Pacemaker And Lead Implant 02/13 Follow-up from phase 1 InterStim Good success Would like to move ahead with Part 2 01/13/2025--Wicho is an 84-year-old male with history of prostate cancer here as a new patient evaluation for complaints of urinary incontinence. Urinalysis is negative. History of Present Illness - The patient is an 84-year-old male presenting with urinary incontinence. - He has a history of prostate cancer treated with radical prostatectomy in 2010, leading to urinary incontinence. - Despite attempts with multiple anticholinergics, including Gemtesa and artificial urinary sphincter x 2, his incontinence persists. - Bladder wall thickening and diverticulae were noted on a recent CAT scan, indicating bladder muscle remodeling like contributing to bladder spasms. - The patient also has dementia and Alzheimer's disease, managed with Donepezil, which may contribute to urinary frequency symptoms. Discussion: The sacral nerves play a vital role in controlling the bladder and bowel muscles.?When these nerves are stimulated, it can help regulate their function, improving control and reducing symptoms.?I discussed that Sacral neuromodulation is a therapy the sends impulses to the sacral nerve that control bladder and bowel function. Results - CAT scan: 10/03/24--Bladder wall thickening and diverticulae observed. - Urinalysis: Negative. Plan - Evaluate the use of a bladder pacemaker with a test phase to determine its effectiveness in managing bladder spasms. - Consider Botox injections if the pacemaker does not provide relief, noting the risk of urinary retention. - Advise increased fluid intake to support kidney function despite urinary frequency. PFSH Medical History Osteoporosis Prostate cancer Hyperlipidemia Back pain Alzheimer's dementia Afib Surgical History History of partial knee replacement Hx of cataract extraction Hx of appendectomy Hx of tonsillectomy Status post implantation of artificial urinary sphincter Hx of prostatectomy Hx of colonoscopy Social History Are you a primary hospice care sales consultant to a significant other at home: No Do you presently have visiting nurse or other home services: No Patient Tobacco Use Status: Never used Tobacco Review of Systems Const All systems reviewed & are unremarkable except as noted in HPI and below Reports no additional complaints Eyes Reports no additional complaints ENT Reports no additional complaints Card Reports no additional complaints Resp Reports no additional complaints GI Reports no additional complaints Reports as per HPI Musc Reports no additional complaints Skin/Breast Reports system reviewed and no additional complaints, except as documented Neuro Reports no additional complaints Psych Reports no additional complaints Endo Reports no additional complaints Bandar/Lymph Reports no additional complaints Aller/Immun Reports no additional complaints Results Reviewed Results Reviewed: Date of Service: 10/03/24 CLINICAL HISTORY: R19.8 - Other specified symptoms and signs involving the digestive syste... CT abdomen and pelvis with contrast Comparison: None Findings: No consolidation at the lung bases. No cardiomegaly. Severe calcified coronary artery disease. Mild calcification of the aortic valve. Status post cholecystectomy and prostatectomy. Mild wall thickening of the bladder. Small bladder diverticula. Pancreatic parenchymal calcifications. Ductal dilatation, parenchymal atrophy or focal decreased attenuation. No hydronephrosis. Left renal parapelvic cysts. Bilateral renal subcentimeter low attenuating lesions which are too small to characterize. Mild right renal scarring. Status post penile prosthesis. The other solid organs are unremarkable. No bowel wall thickening or dilation. The appendix is not visualized. No secondary signs of acute appendicitis. Colonic diverticulosis. No aneurysm. Moderate to severe calcified atherosclerotic disease. No lymphadenopathy. No ascites. No acute osseous abnormality. Status post kyphoplasty of T12. Grade 1 anterolisthesis of L4 on L5 and L5 on S1, degenerative. Impression: No definitive evidence of pancreatic cancer. If there is continued clinical concern for pancreatic cancer evaluate further with pancreatic mass protocol CT or MR. There are pancreatic parenchymal calcifications which can be the sequela of chronic pancreatitis. Wall thickening of the bladder with small diverticula is likely due to chronic outlet obstruction. Cystitis is considered less likely. Correlate with urinalysis. Assessment & Plan Assessment & Plan (1) Urgency-frequency syndrome: Code(s): N32.81 - Overactive bladder Category: Medical (2) Voiding dysfunction: Code(s): N39.8 - Other specified disorders of urinary system Category: Medical (3) History of prostate cancer: Code(s): Z85.46 - Personal history of malignant neoplasm of prostate Category: Medical Plan Plan 1. Voiding Dysfunction 2. Urinary Incontinence - Continue with current management strategies, including the use of the intrastim pacemaker settings - Monitor symptoms and adjust pacemaker settings as needed. - Follow-up in three weeks to assess symptom progression and management efficacy. 3. Prostate cancer, h/o radical prostatectomy monitor PSA Orders: Orders PSA,Total (Free>4and<10) Today Z85.46 - Personal history of malignant neoplasm of prostate AMB Urinalysis Automated Today N32.81 - Overactive bladder, N39.8 - Other specified disorders of urinary system, R32 - Unspecified urinary incontinence Patient Instructions: The patient had an opportunity to ask questions regarding treatment plan. The patient expressed understanding and agreement with the above treatment plan. The patient is aware they should contact our office by phone for worsening of their current condition or the appearance of new symptoms. Compliance is encouraged with any medications and followup testing that is ordered. It is a privilege to be allowed the opportunity to participate in the urologic care of your patient. If you have any questions or concerns regarding treatment for the above conditions please do not hesitate to contact me. The office telephone contact is [phone]. This note is constructed in part using voice recognition software. While every effort has been made to ensure accuracy digital color press operator errors may have been included. Yours sincerely, Darlene Ramos MD Scribe Plan - Not visible on output: This note is constructed using voice recognition software. While every effort has been made to ensure accuracy digital color press operator errors may have been included. Coding Level of Care Code Est Pt Level 4 (38711) Diagnoses Urgency-frequency syndrome N32.81 Voiding dysfunction N39.8 History of prostate cancer Z85.46
--- OUTSIDE RECORDS SUMMARY | 2025-05-11 15:09 | XMS_ITS | Clinical Summary ---
Author Organization [facility] Address [address] [place] [address] Care Team Providers Care Food Beverage Manager Name Role Phone Unavailable Primary Care Provider [...]
--- OUTSIDE RECORDS SUMMARY | 2025-05-11 15:09 | XMS_ITS | Data Portability ---
Author Organization [place] [facility], [facility] Address [address] [address] Care Team Providers Care Unit Director Name Role Phone MACRINA MCINTYRE Primary Care [...] Sensorine ural hearing loss of bilateral ears [id number] Active 2020 Sensorine ural hearing loss, bilateral ; Note: Date Diagnosed : 07/06/2020 11:18 AM (H90.3) Not Available [facility] 4 03:07:43 Impacted cerumen of bilateral ears [id number] Active 2020 Impacted cerumen, bilateral ; Note: Date Diagnosed : 07/06/2020 11:17 AM (H61.23) Not Available [facility] 4 03:07:42 Problem Notes None recorded. Procedures Surgical History Date Name Laterality Status Provider Name and Address Organization Details Recorded Time 07/05/19 25 Cerumen removal with microscope bilateral completed BRYANT MCCLAIN MD [address] [place] [address], [place], [address], [facility] - [facility] 07/05/2024 11:34:33 Tonsillectomy completed Yasmine Lebron [facility] 07/05/2024 11:15:22 Appendectomy completed Yasmine Lebron [facility] 07/05/2024 11:15:28 cholecystectomy completed Yasmine Lebron [facility] 07/05/2024 11:15:35 Cataract Surgery completed Yasmine Lebron [facility] 07/05/2024 11:16:10 Imaging Results None recorded. Procedure [...] mg tablet 07/05 completed Medicati on ID: [id number] B rand Name: catherine london Send Method: [...] tended release 2020 active Medicati on ID: [id number] B rand Name: Yulia ga Send Method: [...] ICD10 Code Diagnosis IMO Codes Diagnosis Note [id number] BRYANT MCCLAIN MD [facility] [address] [address] 07/05/2024 10:54:13 07/05/2024 11:30:48 Impacted cerumen of bilateral ears [id number] H61.23 Health Concerns Section Related Observation LastModified by Organization Detai ls LastModified Time None Recorded Concern Status LastModified by Organization Details LastModified Time None Recorded Advance Directives Directive None Recorded Payers Insurance Date Sequence Insurance Name Policy Number Policy Cantu Covered Member ID Cantu Member ID Guarantor Name 06/30/2024 1 MEDICARE B-[place]: [employer] Wicho Vergara [id number] Wicho Vergara 07/11/2024 2 [facility] INDEMNITY PLAN (INDEMNITY) [id number] Barbara Vergara [id number] Wicho Vergara Notes Date Note Type Note Provider Name and Address Organization Details Recorded Time 07/05/2024 text/html ROS as noted in the HPI History of cerumen impaction: yes Hearings loss: yes Qtip use: no Tinnitus: noVertigo: no Pain: no Drainage: no History of ear infections: no History of ear surgeries: no BRYANT MCCLAIN MD [address] [place] [address], [phone], [facility] - [facility] 07/05/2024 11:35:14
== END 2025-05-11 11:22 | disposition home or self-care (01) ==
LOC: HO.HUSH 10:18
PROVIDERS: PCP Internal Medicine; Visit Provider Urology
DX: R32 Unspecified urinary incontinence (principal); N32.81 Overactive bladder; N39.8 Other specified disorders of urinary system; Z85.46 Personal history of malignant neoplasm of prostate
CPT/HCPCS: 99214

== ENCOUNTER → 2025-05-11 10:18 | Outpatient (BNVA) | payer MEDICARE, OTHER, SELFPAY | PROVIDERS: PCP Internal Medicine; Visit Provider Urology | DX: N32.81 Overactive bladder (principal); R32 Unspecified urinary incontinence; N39.8 Other specified disorders of urinary system; Z85.46 Personal history of malignant neoplasm of prostate; Z79.01 Long term (current) use of anticoagulants | CPT/HCPCS: 81003; 99212 ==

== ENCOUNTER 2025-06-02 16:12 | Outpatient (AMB) | payer MEDICARE, OTHER, SELFPAY ==
--- NOTE | 2025-06-02 16:12 | MHC.OFFVIS ---
Intake Visit Reasons: 3w Interstim f/u (set) Intake Note: Patient presents today via telehealth for a 3w interstim follow up (03/14 Implant date) Urology Medication:Vitamin B12 Blood Thinner:Apixaban Antibiotic Allergies:None Hasher Operator Required: No Accompanied by: Self / Same As Patient Allergies No Known Allergies Allergy (Verified 07/03/25 13:01) HPI Comments Details: 06/02/25--History of Present Illness The patient is an 84-year-old male with voiding dysfunction, presenting for a telehealth follow-up. He has a history of prostate cancer treated with a radical prostatectomy and had an artificial sphincter. PMH--Alzheimer's dementia. He is status post a sacral neuromodulation (InterStim) implant on 03/14/25 for voiding dysfunction. According to a urinary diary, after the surgery, he was averaging 12.4 voids per day and 3.2 leaks per day on his initial program setting. His device was changed to program 3 with an amplitude of 5.3, after which his voids decreased to an average of 11.7 per day and his leaking episodes decreased to 1.8 per day. The patient reports getting wet about twice a day, with some episodes being only dampness, and he sometimes uses powder to prevent infection on his penis. He experiences nocturia but is often dry after urinating, though reports being wet on the fourth time he gets up at night. He also reports episodes of urgency, where urination begins before he is fully seated on the toilet. Despite the data showing improvement, the patient feels there has been no improvement in his symptoms and is discouraged. Results - Voiding diary with InterStim: - On initial program: Averaged 12.4 voids and 3.2 leaks per day. - On program 3: Averaged 11.7 voids and 1.8 leaks per day. [facility] Medical History (Updated 07/03/25 @ 13:40 by Juanpablo Walters MD) Annual physical exam Excessive cerumen in both ear canals Mixed hyperlipidemia Hypertension, essential, benign Osteoporosis Prostate cancer Hyperlipidemia Back pain Alzheimer's dementia Afib Surgical History History of partial knee replacement Hx of cataract extraction Hx of appendectomy Hx of tonsillectomy Status post implantation of artificial urinary sphincter Hx of prostatectomy Hx of colonoscopy Family History (Updated 07/03/25 @ 13:09 by Michelle Rosas MA) Mother No problems noted. Father No problems noted. Social History Housing: House Are you a primary healthcare architect to a significant other at home: No Do you presently have visiting nurse or other home services: No Patient Tobacco Use Status: Never used Tobacco e-Cigarette/Vaping Use: Never Used service: No Current occupational status: retired Cognitive needs: No Hearing needs: Yes (bilateral) Vision needs: No Telehealth Telehealth Telehealth Platform: Telephone Location of provider rendering services: practice address Location of patient: address on file Patient Identification confirmed using: Name, : Yes Telehealth method: voice only Patient verbally consented to treatment: Yes Patient verbally consented to billing insurance company: Yes Patient informed of any privacy concerns related to visit: Yes Minutes spent on Phone/Video with Pt.: 14 Assessment & Plan Assessment & Plan (1) Urgency-frequency syndrome: Code(s): N32.81 - Overactive bladder Category: Medical (2) Voiding dysfunction: Code(s): N39.8 - Other specified disorders of urinary system Category: Medical (3) History of prostate cancer: Code(s): Z85.46 - Personal history of malignant neoplasm of prostate Category: Medical Plan Plan 1. Voiding Dysfunction, Status Post Sacral Neuromodulation - The patient's urinary diary indicates an almost 50% improvement in leaking episodes since starting InterStim therapy, decreasing from 3.2 to 1.8 leaks per day. - Despite objective improvement, the patient perceives minimal benefit from the therapy. - To objectively assess the device's efficacy, the plan is to turn the InterStim off. - A device treasury representative will contact the patient to provide instructions on how to turn off the device. - The patient will maintain the device in the off state for a washout period of at least three weeks. - After the three-week washout period, he will start a new voiding diary. - He should keep the new diary for approximately five days leading up to his next appointment. - A follow-up appointment will be scheduled in approximately six weeks to compare the urinary diaries (device on vs. device off) and decide on further management, including potential removal of the device if no significant benefit is confirmed. Patient Instructions: The patient had an opportunity to ask questions regarding treatment plan. The patient expressed understanding and agreement with the above treatment plan. The patient is aware they should contact our office by phone for worsening of their current condition or the appearance of new symptoms. Compliance is encouraged with any medications and followup testing that is ordered. It is a privilege to be allowed the opportunity to participate in the urologic care of your patient. If you have any questions or concerns regarding treatment for the above conditions please do not hesitate to contact me. The office telephone contact is [phone]. This note is constructed in part using voice recognition software. While every effort has been made to ensure accuracy vice president marketing & development errors may have been included. Yours sincerely, Darlene Ramos MD Scribe Plan - Not visible on output: Patient was informed and verbally consented to the use of an ambient scribe for clinic note documentation during this visit. Coding Level of Care Code Tele Est Pt Level 3 (71483) Diagnoses Urgency-frequency syndrome N32.81 Voiding dysfunction N39.8 History of prostate cancer Z85.46
--- OUTSIDE RECORDS SUMMARY | 2025-06-02 20:41 | XMS_ITS | Clinical Summary ---
Author Organization [facility] Address [address] [place] [address] Phone Care Team Providers Care Range Manager Name Role Phone Lj Caldwell MD Primary Care Provider [phone] Allergies No known active allergies Medications DILT-XR [...] Problem Noted Date Diagnosed Date Longstanding persistent atrial fibrillation 02/20 Overview (03/06/2025): - anticoagulated with apixaban - [...] a pharmacologic nuclear stress test 07/19/2023 at [facility] completed for chest discomfort, , without fixed or reversible defects with normal LVEF greater than 70% Assessment & Plan (05/26/2025 9:34 AM EST): Patient has a history of longstanding persistent atrial fibrillation. He denies palpitations, states he has never felt any associated symptoms with his atrial fibrillation. He continues on Eliquis 5 mg twice daily which is appropriate based on his age, weight and most recent creatinine. He has a [id number] score of 2 or 3 with questionable history of hypertension and his age. He denies abnormal bleeding. He continues on diltiazem for rate control. He was previously evaluated by Dr. Purcell for watchman device due to his elevated fall risk, patient would like to hold off on proceeding with the procedure at this time. Assessment & Plan (05/08/2025 1:46 AM EST): Orders: ECG 12 lead Assessment & Plan (03/06/2025 9:42 AM EDT): [...] function. Primary hypertension 03/06/2025 Assessment & Plan (05/08/2025 1:46 AM EST): Assessment & Plan (03/06/2025 9:38 AM EDT): The patient possibly has a diagnosis of elevated blood pressure. Currently, his blood pressure is well-controlled on his prescribed dose of diltiazem. Continue the same Pure hypercholesterolemia 03/06/2025 Assessment & Plan (03/06/2025 9:38 AM EDT): Well-controlled lipid profile on current dose statin without known CAD. Continue current treatment plan Encounters Date Type Department Care Team Description 05/30/2025 Results Follow-Up [facility] [address] [place] [address] [address] [place] [address] Angella Carrillo NP 05/26/2025 9:10 AM EST Office Visit [facility] Dr Cifuentes [facility] [address] [place] [address] Angella Carrillo NP Longstanding persistent atrial fibrillation (CMS/HCC V24, CMS/HCC V28) (Primary Dx); Hyperlipidemia, unspecified hyperlipidemia type; Primary hypertension 05/17/2025 Telephone [facility] [address] [place] [address] Nick Purcell MD 04/18/2025 3:25 PM EDT Consult [facility] [address] [place] [phone] Nick Purcell MD Longstanding persistent atrial fibrillation (CMS/HCC V24, CMS/HCC V28) (Primary Dx); Falls frequently; Vascular dementia, unspecified dementia severity, unspecified whether behavioral, psychotic, or mood disturbance or anxiety (CMS/HCC V24, CMS/HCC V28); Primary hypertension 03/08/2025 Telephone [facility] [address] [facility] [address] [place] [phone] Ebony Masterson NP 03/06/2025 8:10 AM EDT Consult [facility] [address] [facility] [address] [place] [phone] Ebony Masterson NP Longstanding persistent atrial fibrillation (CMS/HCC V24, CMS/HCC V28) (Primary Dx); Paroxysmal atrial fibrillation (CMS/HCC V24, CMS/HCC V28); Pure hypercholesterolemia; Primary hypertension; Preop cardiovascular exam from Last 3 Months Surgical History Surgery Date Site/Laterality Comments OTHER SURGICAL HISTORY PROCEDURE: [place] LAPS SURG FEDQ8ICK RPBIC RAD W/NRV SPARING ROBOT TOTAL KNEE [...] colic on right side; COMMENT: D/C'd from [facility] 08/21/21 UTI (urinary tract infection), bacterial DX:UTI (urinary tract infection), bacterial; COMMENT: D/C'd from [facility] 08/21/21 Urolithiasis DX:Urolithiasis; COMMENT: D/C'd from [facility] 08/21/21 Transaminitis DX:Transaminitis ; COMMENT: D/C'd from [facility] 08/21/21 BPH (benign prostatic hyperplasia) DX:BPH (benign prostatic hyperplasia) GERD (gastroesophageal reflux disease) DX:GERD (gastroesophageal reflux disease) Varicose veins of both lower extremities DX: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 DX :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 ( [facility]/HCC V24, [facility] V28) DX:Adenocarcinoma of prostat e (HCC) Lumbar [...] on file Sexual Orientation Not on file Last Filed Vital Signs Vital Sign Reading Time Taken Comments Blood Pressure 106/70 05/26/2025 8:55 AM EST Pulse 67 05/26/2025 8:55 AM EST Temperature - - Respiratory Rate - - Oxygen Saturation 98% 05/26/2025 8:55 AM EST Inhaled Oxygen Concentration - - Weight 68.9 kg (152 lb) 05/26/2025 8:55 AM EST Height 175.3 cm (5' 9 ) 05/26/2025 8:55 AM EST Body Mass Index 22.45 05/26/2025 8:55 AM EST Plan of Treatment Health Maintenance Due Date Last Done Comments Falls Risk Assessment 06/01/2022 Medicare Annual Wellness Visit 06/01/2022 Social Influencers of Health Screening 06/01/2022 Depression Screening 06/22/2024 COVID-19 Vaccine (8 - Pfizer risk 2024- season) 2025 03/24/2025, 03/16/2024, 03/26/2023, Additional history exists Hypertension/CHF/CAD Annual BMP Blood Test 05/26/2026 05/26/2025, 11/24/2024 Cholesterol Screening (Lipid Panel) 12/15/2029 12/15/2024 DTaP,Tdap,and Td Vaccines (2 - Td or Tdap) 04/03/2035 04/03/2025 Zoster Vaccines Completed 02/01/2018, 11/06/2017 Pneumococcal Vaccine: 50+ Years Completed 05/05/2019, 11/06/2017 Hepatitis A Vaccines Aged Out 05/16/2019, 04/12/2019, 04/11/2019 No longer eligible based on patient's age to complete this topic RSV Immunization Adult Patients Completed 05/08/2023 Influenza Vaccine Completed 03/24/2025, , 03/26/2023, Additional [...] Procedure Name Priority Date/Time Associated Diagnosis Comments BASIC METABOLIC PANEL Routine 05/26/2025 9:33 AM EST Primary hypertension MAGNESIUM Routine 05/26/2025 9:33 AM EST Primary hypertension ECG 12-LEAD Routine 04/18/2025 3:25 PM EDT Longstanding persistent atrial fibrillation (CMS/HCC V24, CMS/HCC V28) ECG 12-LEAD Routine 03/06/2025 9:45 AM EDT Paroxysmal atrial fibrillation (CMS/HCC V24, CMS/HCC V28) LIPID PANEL Routine 12/15/2024 8:09 AM EDT Hyperlipidemia, unspecified hyperlipidemia type from Last 3 Months or Most Recently Relevant to Health Maintenance Results * Magnesium (05/26/2025 9:33 AM EST) [facility] Magnesium 2.2 1.6 - 2.3 mg/dL [facility] 1 Blood Venous blood specimen / Unknown 05/26/2025 9:33 AM EST 05/26/2025 Narrative [facility] 1 - 05/27/2025 1:06 AM EST Performed at: 01 - [facility], [address], [place], [place] [id number] Truck Sales Manager: Alen Li MD, Phone: [phone] us Angella Carrillo NP LAB BLOOD ORDERABLES Final Res ult [facility] 1 * (ABNORMAL) Basic metabolic panel (05/26/2025 9:33 AM EST) Pathologist [facility] Glucose 214(H) 70 - 99 mg/dL [facility] 1 Blood Urea Nitrogen (BUN) 18 8 - 27 mg/dL [facility] 1 Creatinine 1.08 0.76 - 1.27 mg/dL [facility] 1 eGFR 68 >59 mL/min/1.7 3 [facility] 1 BUN/Creatinine Ratio 17 10 - 24 [facility] 1 Sodium 139 134 - 144 mmol/L [facility] 1 Potassium 4.8 3.5 - 5.2 mmol/L [facility] 1 Chloride 102 96 - 106 mmol/L [facility] 1 Carbon Dioxide 29 20 - 29 mmol/L [facility] 1 Calcium 9.5 8.6 - 10.2 mg/dL [facility] 1 Blood Venous blood specimen / Unknown 05/26/2025 9:33 AM EST 05/26/2025 Narrative [facility] 1 - 05/26/2025 7:07 PM EST Performed at: - [facility] [place] [address], [address], [place], [place] [id number] Truck Sales Manager: Alen Li MD, Phone: [phone] us Angella Carrillo DERMATOLOGY SALES REPRESENTATIVE LAB BLOOD ORDERABLES Final Res ult [facility] 1 * ECG 12 lead (04/18/2025 3:25 PM EDT) Only the most recent of2 resultswithin the time period is included. Ventricular Rate ECG 69 BPM [facility] Atrial Rate 69 BPM [facility] P-R Interval 250 ms [facility] QRS Duration 86 ms GEMUSE Q-T Interval 362 ms GEMUSE QTc 387 ms GEMUSE P Wave Guion 79 degrees GEMUSE R Guion 92 degrees GEMUSE T Guion 45 degrees GEMUSE ECG Interpretation Atrial fibrillation Rightward axis When compared with ECG of 06-MAR-2025 08:10, No significant change was found Confirmed by JULIA PURCELL ([id number]) on 05/08/2025 1:42:43 AM [facility] 04/18/2025 3:25 PM EDT 05/08/2025 1:42 AM EST Nick Purcell MD ECG ORDERABLES Final Resu lt Performing Organization Address City/[facility]/ZIP Co de Phone Number GEMUSE * Lipid panel (12/15/2024 8:09 AM EDT) Cholesterol Total 122 100 - 199 mg/dL [facility] 1 Triglycerides 64 0 - 149 mg/dL [facility] 1 HDL Cholesterol 52 >39 mg/dL [facility] 1 VLDL Cholesterol Calculated 14 5 - 40 mg/dL [facility] 1 LDL Chol Calc ([facility]) 56 0 - 99 mg/dL [facility] 1 Blood Venous blood specimen / Unknown 12/15/2024 8:09 AM EDT 12/15/2024 Narrative [facility] 1 - 12/16/2024 1:06 AM EDT Performed at: 01 - [facility] [address] [id number] Truck Sales Manager: Dona Dumont MD, Phone: [phone] Specimen Comment: A courtesy copy of this report has been sent to [phone] us Angella Carrillo DERMATOLOGY SALES REPRESENTATIVE LAB BLOOD ORDERABLES Final Res ult [facility] 1 from Last 3 Months or Most Recently Relevant to Health Maintenance Insurance [facility]IC[facility] Care Teams Range Manager Relationship Specialty Start Date End Date Lj Caldwell MD [address] [place] [address] [address] [place], [place] PCP - General Internal Medicine 09/19/21
--- OUTSIDE RECORDS SUMMARY | 2025-06-02 20:41 | XMS_ITS | Clinical Summary ---
Author Organization [facility] Prior to 11/19/[address] [place] [address] Care Team Providers Care Siebel Developer Name Role Phone Unavailable Primary Care [...]
--- OUTSIDE RECORDS SUMMARY | 2025-06-02 20:41 | XMS_ITS | Encounter Summary ---
Author Organization [facility] Address [address] [place] [address] Care Team Providers Care Buttonhole Machine Operator Name Role Phone Lj Caldwell MD Primary Care Provider Encounter Details Date Type Department Care Team (Late st Contact Info) Description 05/30/2025 Results Follow-Up [facility] [address] [place] [address] Dr [address] [place] [phone] Angella Carrillo NP [address] [place] [address] Dr [address] [place] [address] Social History Tobacco Use Types Packs/Day Years [...] on file documented as of this encounter Plan of Treatment Not on file documented as of this encounter Visit Diagnoses Not on filedocumented in this encounter Care Teams Buttonhole Machine Operator Relationship Specialty Start Date End Date Lj Caldwell MD [address] [place] [address] [address] [place], [place] PCP - General Internal Medicine 09/19/21 documented as of this encounter
--- OUTSIDE RECORDS SUMMARY | 2025-06-02 20:41 | XMS_ITS | Data Portability ---
Author Organization [place] - [facility], Allergy Address [address] [address] Care Team Providers Care Senior Software Test Engineer Name Role Phone MACRINA MCINTYRE Primary Care Provider [phone] Assessment Encounter Date Assessment Date Assessment LastModified [...] Sensorine ural hearing loss of bilateral ears [id number] Active 2020 Sensorine ural hearing loss, bilateral ; Note: Date Diagnosed : 07/06/2020 11:18 AM (H90.3) Not Available [facility] 4 03:07:43 Impacted cerumen of bilateral ears [id number] 15854 Active 2020 Impacted cerumen, bilateral ; Note: Date Diagnosed : 07/06/2020 11:17 AM (H61.23) Not Available [facility] 4 03:07:42 Problem Notes None recorded. Procedures Surgical History Date Name Laterality Status Provider Name and Address Organization Details Recorded Time 07/05/19 25 Cerumen removal with microscope bilateral completed BRYANT MCCLAIN MD [address] [place] [address], [place], [address], [facility] 07/05/2024 11:34:33 Tonsillectomy completed Yasmine Lebron [facility] 07/05/2024 11:15:22 Appendectomy completed Yasmine Lebron [facility] 07/05/2024 11:15:28 cholecystectomy completed Yasmine Lebron [facility] 07/05/2024 11:15:35 Cataract Surgery completed Yasmine Lebron [facility] 07/05/2024 11:16:10 Imaging Results None recorded. [...] mg tablet 07/05 completed Medicati on ID: [id number] B rand Name: catherine london Send Method: [...] tended release 2020 active Medicati on ID: [id number] B rand Name: Yulia ga Send Method: [...] ICD10 Code Diagnosis IMO Codes Diagnosis Note [id number] BRYANT MCCLAIN MD [facility] [address] [address] 07/05/2024 10:54:13 07/05/2024 11:30:48 Impacted cerumen of bilateral ears [id number] H61.23 Health Concerns Section Related Observation LastModified by Organization Detai ls LastModified Time None Recorded Concern Status LastModified by Organization Details LastModified Time None Recorded Advance Directives Directive None Recorded Payers Insurance Date Sequence Insurance Name Policy Number Policy Cantu Covered Member ID Cantu Member ID Guarantor Name 06/30/2024 1 MEDICARE [place]: [employer] Wicho Vergara [id number] Wicho Vergara 07/11/2024 2 [facility] INDEMNITY PLAN (INDEMNITY) [id number] Barbara Vergara [id number] Wicho Vergara Notes Date Note Type Note Provider Name and Address Organization Details Recorded Time 07/05/2024 text/html ROS as noted in the HPI History of cerumen impaction: yes Hearings loss: yes Qtip use: no Tinnitus: noVertigo: no Pain: no Drainage: no History of ear infections: no History of ear surgeries: no BRYANT MCCLAIN MD [address] [place] [address], [phone], [facility] - [facility] 07/05/2024 11:35:14
== END 2025-06-02 16:52 | disposition home or self-care (01) ==
LOC: HO.HUSH 16:12
PROVIDERS: PCP Internal Medicine; Visit Provider Urology
DX: N32.81 Overactive bladder (principal); N39.8 Other specified disorders of urinary system; Z85.46 Personal history of malignant neoplasm of prostate
CPT/HCPCS: 99213